=== PATIENT | male | born 1975 | race African-American/Black ===

== ENCOUNTER 2017-02-27 19:10 | Emergency (ER) | payer BC ==
[~2017-02-27] VITALS: Ht 182.9 cm; Wt 186.0 kg
[~2017-02-27 19:10] MED LIST: HYDR-2758 PO; OXYC-327 PO; OXYC-328 PO; SULF-143 PO
[2017-02-27 21:02] LABS: BASO % 0 % (0-3); EOS % 2 % (0-3); HEMATOCRIT 39.6 % (39.0-53.0); HEMOGLOBIN 12.6 g/dL (13.0-17.5); LYMPH # 2.1 x10^3/uL (1.0-4.8); LYMPH % 28 % (24-48); MEAN CORPUSCULAR HEMOGLOBIN 28 pg (25-35); MEAN CORPUSCULAR HGB CONC 32 g/dL (31-37); MEAN CORPUSCULAR VOLUME 87 fL (79-100); MONO % 5 % (0-9); NEUT % 65 % (31-73); PLATELET COUNT 334 x10^3/uL (140-400); RED BLOOD COUNT 4.53 x10^6/uL (4.30-5.70); RED CELL DISTRIBUTION WIDTH 14.3 % (11.5-14.5); WHITE BLOOD COUNT 7.5 x10^3/uL (4.0-11.0)
[2017-02-27 21:13] LABS: CALCIUM 8.7 mg/dL (8.5-10.1); GFR 100.1; POTASSIUM 3.8 mmol/L (3.5-5.1)
[2017-02-27 21:18] LABS: ALBUMIN 3.8 g/dL (3.4-5.0); ALBUMIN/GLOBULIN RATIO 0.9 (1.0-1.7); TOTAL BILIRUBIN 0.3 mg/dL (0.2-1.0)
[2017-02-27] MEDS ORDERED: IOHEXOL 300 MG/ML 100ML VIAL. IV ONE (21:30)
[2017-02-27] MEDS ORDERED: CONTRAST GIVEN MC PRN (21:30)
--- NOTE | 2017-02-27 21:40 | PHYS DOC ---
Past Medical History Past Medical History: Alcoholism, GERD Past Surgical History: No Surgical History Alcohol Use: Heavy Additional Information: 2 -24 OZ BEERS DAILY Drug Use: None Adult General Chief Complaint Chief Complaint: CHEST PAIN HPI HPI Patient is a 42 year old M who presents with chest pain. Patient states that he 's having emotional distress secondary his grandfather's sickness. Patient developed some left-sided chest pain that radiated down his left arm. Patient states in the emergency room the chest pain is resolved however he still has some numbness and tingling to the left arm. Patient is obese however has no previous cardiac history including stents and bypass surgery. Patient does not have hypertension, diabetes, smoking history, hyperlipidemia. Patient does declines any previous history of DVT or PE. Patient has no other complaints. Patient denies any fevers. Review of Systems Review of Systems GEN: Denies fevers, chills, sweats HEENT: Denies blurred vision, sore throat CV: Chest pain RESP: Denies shortness of air, cough GI: Denies n/v/d NEURO: Denies confusion, dizziness MSK: Denies weakness, joint pain/swelling All other systems were reviewed and found to be within normal limits, except as documented in this note. Current Medications Current Medications Current Medications Medications (Trade) Dose Ordered Sig/Dmitri Start Time Stop Time Status Last Admin Dose Admin Info (Do NOT chart on this entry -- for MONITORING) 1 each PRN DAILY PRN 02/27/17 21:30 03/01/17 21:29 Iohexol (Omnipaque 300 Mg/ml) 75 ml 1X ONCE 02/27/17 21:30 02/27/17 21:31 DC 02/27/17 21:25 75 ML Allergies Allergies Allergies Coded Allergies Type Severity Reaction Last Updated Verified No Known Drug Allergies 07/27/13 No Physical Exam Physical Exam GEN.: No apparent distress. Alert and oriented. HEENT: Head is normocephalic, atraumatic NECK: Supple. LUNGS: CTAB. HEART: RRR (on examined emergency room despite triage vital signs), S1, S2 present. Peripheral pulses intact ABDOMEN: Soft, nontender. Positive bowel sounds. EXTREMITIES: Without any cyanosis. NEUROLOGIC: Normal speech, normal tone PSYCHIATRIC: Normal affect, normal mood. SKIN: No ulcerations Current Patient Data Vital Signs Vital Signs Date Time Temp Pulse Resp B/P (MAP) Pulse Ox O2 Delivery O2 Flow Rate FiO2 02/27/17 23:09 87 16 165/79 (107) 95 Room Air 02/27/17 19:28 98.0 98.0 Lab Values Laboratory Tests Test 02/27/17 19:25 White Blood Count 7.5 x10^3/uL (4.0-11.0) Red Blood Count 4.53 x10^6/uL (4.30-5.70) Hemoglobin 12.6 g/dL (13.0-17.5) L Hematocrit 39.6 % (39.0-53.0) Mean Corpuscular Volume 87 fL (79-100) Mean Corpuscular Hemoglobin 28 pg (25-35) Mean Corpuscular Hemoglobin Concent 32 g/dL (31-37) Red Cell Distribution Width 14.3 % (11.5-14.5) Platelet Count 334 x10^3/uL (140-400) Neutrophils (%) (Auto) 65 % (31-73) Lymphocytes (%) (Auto) 28 % (24-48) Monocytes (%) (Auto) 5 % (0-9) Eosinophils (%) (Auto) 2 % (0-3) Basophils (%) (Auto) 0 % (0-3) Neutrophils # (Auto) 4.9 x10^3uL (1.8-7.7) Lymphocytes # (Auto) 2.1 x10^3/uL (1.0-4.8) Monocytes # (Auto) 0.4 x10^3/uL (0.0-1.1) Eosinophils # (Auto) 0.2 x10^3/uL (0.0-0.7) Basophils # (Auto) 0.0 x10^3/uL (0.0-0.2) Sodium Level 141 mmol/L (136-145) Potassium Level 3.8 mmol/L (3.5-5.1) Chloride Level 103 mmol/L (98-107) Carbon Dioxide Level 24 mmol/L (21-32) Anion Gap 14 (6-14) Blood Urea Nitrogen 9 mg/dL (8-26) Creatinine 1.0 mg/dL (0.7-1.3) Estimated GFR (Cockcroft-Gault) 100.1 BUN/Creatinine Ratio 9 (6-20) Glucose Level 121 mg/dL (70-99) H Calcium Level 8.7 mg/dL (8.5-10.1) Total Bilirubin 0.3 mg/dL (0.2-1.0) Aspartate Amino Transferase (AST) 28 U/L (15-37) Alanine Aminotransferase (ALT) 34 U/L (16-63) Alkaline Phosphatase 71 U/L (46-116) Troponin I Quantitative < 0.017 ng/mL (0.000-0.055) Total Protein 8.0 g/dL (6.4-8.2) Albumin 3.8 g/dL (3.4-5.0) Albumin/Globulin Ratio 0.9 (1.0-1.7) L Laboratory Tests 02/27/17 19:25 Laboratory Tests 02/27/17 19:25 EKG EKG 1918: EKG shows sinus tach rate of 101 no STEMI[] Radiology/Procedures Radiology/Procedures Chest x-ray NAD CTA of the chest NAD[] Course & Med Decision Making Course & Med Decision Making Pertinent Labs and Imaging studies reviewed. (See chart for details) ED course: Patient was seen and examined emergency room cart workup was ordered along with a CTA of the chest due to the tachycardia associated chest pain On reexamination the patient was asymptomatic with no chest pain resting comfortably in the bed He was updated on CT findings which was unremarkable and he was ready go home. Patient's heart score was 1 secondary to his obesity. Recommended patient can follow up as an outpatient for cardiac workup with his PCP. MDM: After reviewing the chart, CC/HPI/PMH, physical exam, [lab results], [ radiological results], I do not believe the patient having acute AL (HEART score =1), PE, thoracic aortic dissection. I believe the patient has a low cardiac risk profile and can be discharged home for outpatient cardiac workup. On reexamination patient is chest pain-free and comfortable going home. Patient stable for discharge. Additional verbal discharge instructions were provided to the patient and that if symptoms get worse or any new symptoms arise that are worrisome to the patient he is to return to the emergency room immediately [] Dragon Disclaimer Dragon Disclaimer This electronic medical record was generated, in whole or in part, using a voice recognition dictation system. Departure Departure Impression: Primary Impression: Chest pain Disposition: HOME, SELF-CARE Condition: IMPROVED Referrals: NO PCP (PCP) Patient Instructions: Chest Pain (Nonspecific) Additional Instructions: Please follow-up with your family physician in the next one to 2 days and return if symptoms increase BRANDY RODRÍGUEZ DO Feb 27, 2017 21:40
[2017-02-27 23:09] VITALS: BP 165/79
--- NOTE | 2017-02-27 23:28 | RAD ---
CTA Chest with contrast: Clinical History: CHEST QUEEN WITH BREATHING FOLLOWING STRESS. INJ 75ML OMNI 300 PT WEIGHT IS 410 POUNDS NO PREV . Axial helical images of the chest were obtained after the administration of 75 cc of IV Omni 300 and timed appropriately for a pulmonary arterial study. Conventional axial reconstruction was performed in addition to coronal, sagittal and bilateral oblique MIP (maximum intensity projection). This study was ordered to detect possible pulmonary embolism. There are no filling defects to suggest pulmonary embolism. There is motion artifact. The lungs and pleural margins are clear. There is no mediastinal or hilar lymphadenopathy. The thoracic aorta appears normal. Impression: 1. No evidence of pulmonary embolism. 2. No significant findings. PQRS Compliance Statement: One or more of the following individualized dose reduction techniques were utilized for this examination: 1. Automated exposure control 2. Adjustment of the mA and/or kV according to patient size 3. Use of iterative reconstruction technique Electronically signed by: Arthur Camp III, MD (02/27/2017 11:25 PM) [facility]
--- NOTE | 2017-02-28 08:46 | RAD ---
AP chest 02/27/2017 Clinical indication: Mid chest pain. Comparison: None. Findings: Cardiac and mediastinal silhouettes are unremarkable. No pleural effusion, pneumothorax or focal consolidation. Impression: No acute cardiopulmonary abnormality.
--- NOTE | 2017-02-28 11:32 | EKG ---
[facility] [address] [place] [address] Test Date: 2017-02-27 Test Time: 19:17:53 Pat Name: HUMBERTO WANG Department: Room: Gender: M [employer] Controls Engineer: : 1975 Requested By: BRANDY RODRÍGUEZ Order Number: [id number] Reading MD: Measurements Intervals [place] Rate: 101 P: 25 MA: 156 QRS: 9 QRSD: 82 T: 6 QT: 334 QTc: 434 Interpretive Statements SINUS TACHYCARDIA QRS(T) CONTOUR ABNORMALITY CONSIDER ANTEROSEPTAL MYOCARDIAL DAMAGE POSSIBLY ABNORMAL ECG RI6.01 No previous ECG available for comparison
== END 2017-02-27 23:55 | disposition home or self-care (01) ==
LOC: ER 19:10
DX: R07.89 Other chest pain (principal); R20.0 Anesthesia of skin; R20.2 Paresthesia of skin; F10.20 Alcohol dependence, uncomplicated; K21.9 Gastro-esophageal reflux disease without esophagitis; E66.9 Obesity, unspecified; Z68.43 Body mass index [BMI] 50.0-59.9, adult
CPT/HCPCS: 36415; 71010; 71275; 80053; 84484; 85025; 93005; 99285; Q9967

== ENCOUNTER 2018-06-04 20:02 | Observation (INO) | payer BC, OTHER ==
[~2018-06-04] VITALS: Ht 185.4 cm; Wt 169.2 kg
[~2018-06-04 20:02] MED LIST changes: -HYDR-2758 PO; +HYDR-2761 PO; -OXYC-327 PO; -OXYC-328 PO; +OXYC1TAB19 PO; +OXYC1TAB22 PO
[2018-06-04 20:29] LABS: BASO % 0 % (0-3); EOS # 0.1 x10^3/uL (0.0-0.7); EOS % 2 % (0-3); HEMATOCRIT 38.3 % (39.0-53.0); HEMOGLOBIN 12.6 g/dL (13.0-17.5); LYMPH # 1.7 x10^3/uL (1.0-4.8); LYMPH % 30 % (24-48); MEAN CORPUSCULAR HEMOGLOBIN 29 pg (25-35); MEAN CORPUSCULAR HGB CONC 33 g/dL (31-37); MEAN CORPUSCULAR VOLUME 88 fL (79-100); MONO # 0.6 x10^3/uL (0.0-1.1); MONO % 11 % (0-9); NEUT # 3.2 x10^3uL (1.8-7.7); NEUT % 57 % (31-73); PLATELET COUNT 293 x10^3/uL (140-400); RED BLOOD COUNT 4.38 x10^6/uL (4.30-5.70); RED CELL DISTRIBUTION WIDTH 14.2 % (11.5-14.5); WHITE BLOOD COUNT 5.6 x10^3/uL (4.0-11.0)
[2018-06-04 20:38] LABS: PROTHROMBIN TIME PATIENT 13.1 SEC (11.7-14.0)
[2018-06-04 20:53] LABS: CALCIUM 8.7 mg/dL (8.5-10.1); CREATININE 1.2 mg/dL (0.7-1.3); GFR 80.7; POTASSIUM 3.7 mmol/L (3.5-5.1)
[2018-06-04 21:00] LABS: ALBUMIN 3.6 g/dL (3.4-5.0); ALBUMIN/GLOBULIN RATIO 0.8 (1.0-1.7); TOTAL BILIRUBIN 0.2 mg/dL (0.2-1.0)
--- NOTE | 2018-06-04 21:48 | PHYS DOC ---
Past Medical History Past Medical History: Alcoholism, GERD Past Surgical History: No Surgical History Alcohol Use: Heavy Drug Use: None Adult General Chief Complaint Chief Complaint: CHEST PAIN HPI HPI Patient is an obese 43 yo male who presents with complaint of chest pain. He reports the pain began ONE HOUR AFTER EATING PIZZA, at 1800 WHILE HE WAS lifting heavy boxes at work. 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 He also admits he had SOB, dizziness, and felt "clammy" at the time of the incident. EMS gave patient nitro which helped alleviate sx. He reports he had a similar incident one other time when he was visiting his terminally ill grandfather. He reports that he now feels fine. He denies drug use, etoh use, or smoking. He reports he does not regularly see a doctor, currently does not have PCP, but has been told he has "borderline high blood pressure". He does report he has had a "blood clot under his nuts" before but does not remember if he was ever on anticoagulation or what caused the clot. He denies any recent prolonged immobilization, travel, or surgery. He denies recent cough or respiratory symptoms. He denies any additional symptoms. MEDICS GAVE ASPIRIN Review of Systems Review of Systems Constitutional: Denies fever or chills [] Eyes: Denies change in visual acuity, redness, or eye pain [] HENT: Denies nasal congestion or sore throat [] Respiratory: Denies cough or shortness of breath [] Cardiovascular: Admits chest pain. Denies palpitations. GI: Denies abdominal pain, nausea, vomiting, bloody stools or diarrhea [] : Denies dysuria or hematuria [] Musculoskeletal: Denies back pain or joint pain [] Integument: Denies rash or skin lesions [] Neurologic: Denies headache, focal weakness or sensory changes [] All other systems were reviewed and found to be within normal limits, except as documented in this note. Allergies Allergies Allergies Coded Allergies Type Severity Reaction Last Updated Verified No Known Drug Allergies 07/27/13 No Physical Exam Physical Exam Constitutional: Well developed, obese, no acute distress, non-toxic appearance. [] HENT: Normocephalic, atraumatic, oropharynx moist, no oral exudates, nose normal. [] Eyes: PERRLA, EOMI Neck: Normal range of motion, no tenderness, supple, no stridor. [] Cardiovascular:Heart rate regular rhythm, no murmur [] Lungs & Thorax: Bilateral breath sounds clear to auscultation [] Abdomen: Bowel sounds normal, soft, no tenderness, no masses, no pulsatile masses. [] Skin: Warm, dry, no erythema, no rash. Extremities: No tenderness, no cyanosis, no clubbing, ROM intact, no edema. [] Neurologic: Alert and oriented X 3, normal motor function, normal sensory function, no focal deficits noted. [] Psychologic: Affect normal, judgement normal, mood normal. [] Current Patient Data Vital Signs Vital Signs Date Time Temp Pulse Resp B/P (MAP) Pulse Ox O2 Delivery O2 Flow Rate FiO2 06/04/18 22:15 100 18 118/54 (75) 96 Room Air 06/04/18 20:15 98.6 98.6 Lab Values Laboratory Tests Test 06/04/18 20:18 White Blood Count 5.6 x10^3/uL (4.0-11.0) Red Blood Count 4.38 x10^6/uL (4.30-5.70) Hemoglobin 12.6 g/dL (13.0-17.5) L Hematocrit 38.3 % (39.0-53.0) L Mean Corpuscular Volume 88 fL (79-100) Mean Corpuscular Hemoglobin 29 pg (25-35) Mean Corpuscular Hemoglobin Concent 33 g/dL (31-37) Red Cell Distribution Width 14.2 % (11.5-14.5) Platelet Count 293 x10^3/uL (140-400) Neutrophils (%) (Auto) 57 % (31-73) Lymphocytes (%) (Auto) 30 % (24-48) Monocytes (%) (Auto) 11 % (0-9) H Eosinophils (%) (Auto) 2 % (0-3) Basophils (%) (Auto) 0 % (0-3) Neutrophils # (Auto) 3.2 x10^3uL (1.8-7.7) Lymphocytes # (Auto) 1.7 x10^3/uL (1.0-4.8) Monocytes # (Auto) 0.6 x10^3/uL (0.0-1.1) Eosinophils # (Auto) 0.1 x10^3/uL (0.0-0.7) Basophils # (Auto) 0.0 x10^3/uL (0.0-0.2) Prothrombin Time 13.1 SEC (11.7-14.0) Prothrombin Time INR 1.0 (0.8-1.1) D-Dimer (Ailin) < 0.27 ug/mlFEU Sodium Level 139 mmol/L (136-145) Potassium Level 3.7 mmol/L (3.5-5.1) Chloride Level 105 mmol/L (98-107) Carbon Dioxide Level 24 mmol/L (21-32) Anion Gap 10 (6-14) Blood Urea Nitrogen 11 mg/dL (8-26) Creatinine 1.2 mg/dL (0.7-1.3) Estimated GFR (Cockcroft-Gault) 80.7 BUN/Creatinine Ratio 9 (6-20) Glucose Level 98 mg/dL (70-99) Calcium Level 8.7 mg/dL (8.5-10.1) Total Bilirubin 0.2 mg/dL (0.2-1.0) Aspartate Amino Transferase (AST) 24 U/L (15-37) Alanine Aminotransferase (ALT) 34 U/L (16-63) Alkaline Phosphatase 70 U/L (46-116) Troponin I Quantitative < 0.017 ng/mL (0.000-0.055) IT-Zpd-B-Type Natriuretic Peptide 9 pg/mL (0-124) Total Protein 8.0 g/dL (6.4-8.2) Albumin 3.6 g/dL (3.4-5.0) Albumin/Globulin Ratio 0.8 (1.0-1.7) L Lipase 118 U/L (73-393) Laboratory Tests 06/04/18 20:18 Laboratory Tests 06/04/18 20:18 EKG EKG [@2016; HR 92bpm. low voltage in lead III. No ST elevation or depression. ] Radiology/Procedures Radiology/Procedures [CXR ED prelim read: No acute radiographic abnormality. Borderline cardiomegaly. Both gutters clear. No consolidation appreciated] Course & Med Decision Making Course & Med Decision Making Patient is a 43 yo obese male who presents with complaint of chest pressure, SOB , and dizziness that began while at work at 1800. He reports EMS gave him nitro en route which alleviated the pain. He does not see a physician regularly, NO PRIMARY DOCTOR DDIMER ENG HEART SCORE H 2 E 0 A 0 R 2 T 0, ADMIT FOR STRESS TEST, THERE WAS EXERTIONAL COMPONENT TO THIS PAIN, CP FREE NOW. DOES NOT SOUND LIKE DISSECTION, PT IS CP FREE NOW IT WAS NONRADIATING Dragon Disclaimer Dragon Disclaimer This electronic medical record was generated, in whole or in part, using a voice recognition dictation system. Departure Departure Impression: Primary Impression: Chest pain Disposition: ADMITTED INPATIENT Admitting Physician: Balaji Bishop Condition: STABLE Referrals: NO PCP (PCP) DESTINI DEVI MD Jun 04, 2018 21:48
[2018-06-04] MEDS ORDERED: MORPHINE SULFATE 4 MG/ML VIAL. IV PRN (22:30)
[2018-06-04] MEDS ORDERED: NITROGLYCERIN SUBLINGUAL 0.4 MG BOTTLE OF 25. SL PRN (22:30)
--- NOTE | 2018-06-04 23:37 | RAD ---
PORTABLE CHEST 1V History: MIDSTERNAL CHEST PAIN X1 DAY Comparison: February 27, 2017 Findings: AP portable view of the chest is submitted. Cardiac silhouette is able, borderline in size. There is no pneumothorax, pleural fluid, infiltrate. Impression: 1. There is no significant infiltrate or pleural fluid. There is stable borderline size of the cardiac silhouette. Electronically signed by: Rafita Harman MD (06/04/2018 11:34 PM) [facility]
[2018-06-04 23:40] VITALS: BP 148/80
[2018-06-05 03:50] VITALS: BP 94/47
[2018-06-05 06:57] LABS: CHOLESTEROL/HDL RATIO 3.3
[2018-06-05 07:00] VITALS: BP 157/91
--- NOTE | 2018-06-05 10:08 | EKG ---
[facility] [address] [place] [address] Test Date: 2018-06-04 Test Time: 20:16:26 Pat Name: HUMBERTO WANG Department: Room: 211 1 Gender: M Therapist Physical: : 1975 Requested By: DESTINI DEVI Order Number: [id number] Reading MD: Beny Robb MD Measurements Intervals [place] Rate: 92 P: 36 OR: 166 QRS: 26 QRSD: 82 T: 29 QT: 354 QTc: 443 Interpretive Statements SINUS RHYTHM Electronically Signed On 06-07-2018 10:09:26 CDT by Beny Robb MD
--- NOTE | 2018-06-05 10:52 | PDOC ---
PROGRESS NOTES Vitals Vitals Vital Signs Date Time Temp Pulse Resp B/P (MAP) Pulse Ox O2 Delivery O2 Flow Rate FiO2 06/05/18 08:00 Room Air 06/05/18 07:00 98.7 78 20 157/91 (113) 98 98.7 Labs LABS Laboratory Tests Test 06/04/18 20:18 06/05/18 02:30 06/05/18 04:00 White Blood Count 5.6 x10^3/uL (4.0-11.0) Red Blood Count 4.38 x10^6/uL (4.30-5.70) Hemoglobin 12.6 g/dL (13.0-17.5) Hematocrit 38.3 % (39.0-53.0) Mean Corpuscular Volume 88 fL (79-100) Mean Corpuscular Hemoglobin 29 pg (25-35) Mean Corpuscular Hemoglobin Concent 33 g/dL (31-37) Red Cell Distribution Width 14.2 % (11.5-14.5) Platelet Count 293 x10^3/uL (140-400) Neutrophils (%) (Auto) 57 % (31-73) Lymphocytes (%) (Auto) 30 % (24-48) Monocytes (%) (Auto) 11 % (0-9) Eosinophils (%) (Auto) 2 % (0-3) Basophils (%) (Auto) 0 % (0-3) Neutrophils # (Auto) 3.2 x10^3uL (1.8-7.7) Lymphocytes # (Auto) 1.7 x10^3/uL (1.0-4.8) Monocytes # (Auto) 0.6 x10^3/uL (0.0-1.1) Eosinophils # (Auto) 0.1 x10^3/uL (0.0-0.7) Basophils # (Auto) 0.0 x10^3/uL (0.0-0.2) Prothrombin Time 13.1 SEC (11.7-14.0) Prothromb Time International Ratio 1.0 (0.8-1.1) D-Dimer (Ailin) < 0.27 ug/mlFEU Sodium Level 139 mmol/L (136-145) Potassium Level 3.7 mmol/L (3.5-5.1) Chloride Level 105 mmol/L (98-107) Carbon Dioxide Level 24 mmol/L (21-32) Anion Gap 10 (6-14) Blood Urea Nitrogen 11 mg/dL (8-26) Creatinine 1.2 mg/dL (0.7-1.3) Estimated GFR (Cockcroft-Gault) 80.7 BUN/Creatinine Ratio 9 (6-20) Glucose Level 98 mg/dL (70-99) Calcium Level 8.7 mg/dL (8.5-10.1) Total Bilirubin 0.2 mg/dL (0.2-1.0) Aspartate Amino Transf (AST/SGOT) 24 U/L (15-37) Alanine Aminotransferase (ALT/SGPT) 34 U/L (16-63) Alkaline Phosphatase 70 U/L (46-116) Troponin I Quantitative < 0.017 ng/mL (0.000-0.055) < 0.017 ng/mL (0.000-0.055) < 0.017 ng/mL (0.000-0.055) LR-Uuf-S-Type Natriuretic Peptide 9 pg/mL (0-124) Total Protein 8.0 g/dL (6.4-8.2) Albumin 3.6 g/dL (3.4-5.0) Albumin/Globulin Ratio 0.8 (1.0-1.7) Lipase 118 U/L (73-393) Triglycerides Level 61 mg/dL (0-150) Cholesterol Level 146 mg/dL (0-200) LDL Cholesterol, Calculated 90 mg/dL (0-100) VLDL Cholesterol, Calculated 12 mg/dL (0-40) Non-HDL Cholesterol Calculated 102 mg/dL (0-129) HDL Cholesterol 44 mg/dL (40-60) Cholesterol/HDL Ratio 3.3 Comment Review of Relevant I have reviewed the following items minh (where applicable) has been applied. Labs Laboratory Tests Test 06/04/18 20:18 06/05/18 02:30 06/05/18 04:00 White Blood Count 5.6 x10^3/uL (4.0-11.0) Red Blood Count 4.38 x10^6/uL (4.30-5.70) Hemoglobin 12.6 g/dL (13.0-17.5) Hematocrit 38.3 % (39.0-53.0) Mean Corpuscular Volume 88 fL (79-100) Mean Corpuscular Hemoglobin 29 pg (25-35) Mean Corpuscular Hemoglobin Concent 33 g/dL (31-37) Red Cell Distribution Width 14.2 % (11.5-14.5) Platelet Count 293 x10^3/uL (140-400) Neutrophils (%) (Auto) 57 % (31-73) Lymphocytes (%) (Auto) 30 % (24-48) Monocytes (%) (Auto) 11 % (0-9) Eosinophils (%) (Auto) 2 % (0-3) Basophils (%) (Auto) 0 % (0-3) Neutrophils # (Auto) 3.2 x10^3uL (1.8-7.7) Lymphocytes # (Auto) 1.7 x10^3/uL (1.0-4.8) Monocytes # (Auto) 0.6 x10^3/uL (0.0-1.1) Eosinophils # (Auto) 0.1 x10^3/uL (0.0-0.7) Basophils # (Auto) 0.0 x10^3/uL (0.0-0.2) Prothrombin Time 13.1 SEC (11.7-14.0) Prothromb Time International Ratio 1.0 (0.8-1.1) D-Dimer (Ailin) < 0.27 ug/mlFEU Sodium Level 139 mmol/L (136-145) Potassium Level 3.7 mmol/L (3.5-5.1) Chloride Level 105 mmol/L (98-107) Carbon Dioxide Level 24 mmol/L (21-32) Anion Gap 10 (6-14) Blood Urea Nitrogen 11 mg/dL (8-26) Creatinine 1.2 mg/dL (0.7-1.3) Estimated GFR (Cockcroft-Gault) 80.7 BUN/Creatinine Ratio 9 (6-20) Glucose Level 98 mg/dL (70-99) Calcium Level 8.7 mg/dL (8.5-10.1) Total Bilirubin 0.2 mg/dL (0.2-1.0) Aspartate Amino Transf (AST/SGOT) 24 U/L (15-37) Alanine Aminotransferase (ALT/SGPT) 34 U/L (16-63) Alkaline Phosphatase 70 U/L (46-116) Troponin I Quantitative < 0.017 ng/mL (0.000-0.055) < 0.017 ng/mL (0.000-0.055) < 0.017 ng/mL (0.000-0.055) KN-Teg-O-Type Natriuretic Peptide 9 pg/mL (0-124) Total Protein 8.0 g/dL (6.4-8.2) Albumin 3.6 g/dL (3.4-5.0) Albumin/Globulin Ratio 0.8 (1.0-1.7) Lipase 118 U/L (73-393) Triglycerides Level 61 mg/dL (0-150) Cholesterol Level 146 mg/dL (0-200) LDL Cholesterol, Calculated 90 mg/dL (0-100) VLDL Cholesterol, Calculated 12 mg/dL (0-40) Non-HDL Cholesterol Calculated 102 mg/dL (0-129) HDL Cholesterol 44 mg/dL (40-60) Cholesterol/HDL Ratio 3.3 Laboratory Tests Test 06/04/18 20:18 06/05/18 02:30 06/05/18 04:00 White Blood Count 5.6 x10^3/uL (4.0-11.0) Red Blood Count 4.38 x10^6/uL (4.30-5.70) Hemoglobin 12.6 g/dL (13.0-17.5) Hematocrit 38.3 % (39.0-53.0) Mean Corpuscular Volume 88 fL (79-100) Mean Corpuscular Hemoglobin 29 pg (25-35) Mean Corpuscular Hemoglobin Concent 33 g/dL (31-37) Red Cell Distribution Width 14.2 % (11.5-14.5) Platelet Count 293 x10^3/uL (140-400) Neutrophils (%) (Auto) 57 % (31-73) Lymphocytes (%) (Auto) 30 % (24-48) Monocytes (%) (Auto) 11 % (0-9) Eosinophils (%) (Auto) 2 % (0-3) Basophils (%) (Auto) 0 % (0-3) Neutrophils # (Auto) 3.2 x10^3uL (1.8-7.7) Lymphocytes # (Auto) 1.7 x10^3/uL (1.0-4.8) Monocytes # (Auto) 0.6 x10^3/uL (0.0-1.1) Eosinophils # (Auto) 0.1 x10^3/uL (0.0-0.7) Basophils # (Auto) 0.0 x10^3/uL (0.0-0.2) Prothrombin Time 13.1 SEC (11.7-14.0) Prothromb Time International Ratio 1.0 (0.8-1.1) D-Dimer (Ailin) < 0.27 ug/mlFEU Sodium Level 139 mmol/L (136-145) Potassium Level 3.7 mmol/L (3.5-5.1) Chloride Level 105 mmol/L (98-107) Carbon Dioxide Level 24 mmol/L (21-32) Anion Gap 10 (6-14) Blood Urea Nitrogen 11 mg/dL (8-26) Creatinine 1.2 mg/dL (0.7-1.3) Estimated GFR (Cockcroft-Gault) 80.7 BUN/Creatinine Ratio 9 (6-20) Glucose Level 98 mg/dL (70-99) Calcium Level 8.7 mg/dL (8.5-10.1) Total Bilirubin 0.2 mg/dL (0.2-1.0) Aspartate Amino Transf (AST/SGOT) 24 U/L (15-37) Alanine Aminotransferase (ALT/SGPT) 34 U/L (16-63) Alkaline Phosphatase 70 U/L (46-116) Troponin I Quantitative < 0.017 ng/mL (0.000-0.055) < 0.017 ng/mL (0.000-0.055) < 0.017 ng/mL (0.000-0.055) KJ-Wfc-L-Type Natriuretic Peptide 9 pg/mL (0-124) Total Protein 8.0 g/dL (6.4-8.2) Albumin 3.6 g/dL (3.4-5.0) Albumin/Globulin Ratio 0.8 (1.0-1.7) Lipase 118 U/L (73-393) Triglycerides Level 61 mg/dL (0-150) Cholesterol Level 146 mg/dL (0-200) LDL Cholesterol, Calculated 90 mg/dL (0-100) VLDL Cholesterol, Calculated 12 mg/dL (0-40) Non-HDL Cholesterol Calculated 102 mg/dL (0-129) HDL Cholesterol 44 mg/dL (40-60) Cholesterol/HDL Ratio 3.3 Medications Current Medications Morphine Sulfate (Morphine Sulfate) 4 mg PRN Q2HR PRN IV PAIN; Start 06/04/18 at 22:30; Stop 06/05/18 at 22:29 Nitroglycerin (Nitrostat) 0.4 mg PRN Q5MIN PRN SL CHEST PAIN; Start 06/04/18 at 22:30; Stop 06/05/18 at 22:29 Active Scripts Active Reported Percocet 7.5-325 Mg Tablet (Oxycodone/Acetaminophen) 1 Each Tablet 1 Tab PO Q4- 6HRS PRN Vitals/I & O Vital Sign - Last 24 Hours 06/04/18 06/04/18 06/04/18 06/04/18 20:15 20:45 21:45 22:15 Temp 98.6 98.6 Pulse 94 94 96 100 Resp 16 20 14 18 B/P (MAP) 129/58 (81) 136/59 (84) 118/60 (79) 118/54 (75) Pulse Ox 95 96 96 96 O2 Delivery Room Air Room Air Room Air Room Air 06/04/18 06/04/18 06/05/18 06/05/18 23:40 23:45 03:50 07:00 Temp 98.5 98.1 98.7 98.5 98.1 98.7 Pulse 93 81 78 Resp 21 19 20 B/P (MAP) 148/80 (102) 94/47 (63) 157/91 (113) Pulse Ox 96 95 98 O2 Delivery Room Air Room Air Room Air Room Air 06/05/18 08:00 O2 Delivery Room Air Intake and Output 06/04/18 06/04/18 06/05/18 14:59 22:59 06:59 Intake Total 400 ml Balance 400 ml ILANA JADE MD Jun 05, 2018 10:52
--- NOTE | 2018-06-05 10:53 | PDOC1 ---
History and Physical Date of Admission Date of Admission DATE: 06/05/18 TIME: 10:52 Identification/Chief Complaint Chief Complaint presents with complaint of chest pain. He reports the pain began ONE HOUR AFTER EATING PIZZA, at 1800 WHILE HE WAS lifting heavy boxes at work. He described the pain as "chest pressure" and "like a vice director of cardiology service line" but denied radiation. He also admits he had SOB, dizziness, and felt "clammy" at the time of the incident. EMS gave patient nitro which helped alleviate sx. STATES HE DRINKS 2 LARGE BEERS A DAY DOES NOT HAVE A PCP Past Medical History Past Medical History Past Medical History Past Medical History Past Medical History: Alcoholism, GERD Past Surgical History: No Surgical History Alcohol Use: Heavy Drug Use: None Past Medical History Cardiovascular: No pertinent hx Pulmonary: No pertinent hx GI: GERD Renal/: No pertinent hx Past Surgical History Past Surgical History: Pacemaker, No pertinent history Family History Family History: Hypertension Social History ALCOHOL: heavy Cardiovascular: No pertinent hx Pulmonary: No pertinent hx GI: GERD Rheumatologic: No pertinent hx Infectious disease: No pertinent hx Renal/: No pertinent hx Past Surgical History Past Surgical History: Pacemaker Family History Family History: Alcohol Abuse, Hypertension Social History Smoke: <1 pack per day ALCOHOL: heavy Drugs: None Current Medications Current Medications Current Medications Morphine Sulfate (Morphine Sulfate) 4 mg PRN Q2HR PRN IV PAIN; Start 06/04/18 at 22:30; Stop 06/05/18 at 22:29 Nitroglycerin (Nitrostat) 0.4 mg PRN Q5MIN PRN SL CHEST PAIN; Start 06/04/18 at 22:30; Stop 06/05/18 at 22:29 Active Scripts Active Reported Percocet 7.5-325 Mg Tablet (Oxycodone/Acetaminophen) 1 Each Tablet 1 Tab PO Q4- 6HRS PRN Allergies Allergies: Coded Allergies: No Known Drug Allergies (Unverified , 07/27/13) ROS Review of System 14 PT ROS OTHERWISE NEG General: No: Chills, Night Sweats, Fatigue, Malaise, Appetite, Other PSYCHOLOGICAL ROS: No: Anxiety, Behavioral Disorder, Concentration difficultie , Decreased libido, Depression, Disorientation, Hallucinations, Hostility, Irritablity, Memory difficulties, Mood Swings, Obsessive thoughts, Physical abuse, Sexual abuse, Sleep disturbances, Suicidal ideation, Other Eyes: No Blurry vision, No Decreased vision, No Double vision, No Dry eyes, No Excessive tearing, No Eye Pain, No Itchy Eyes, No Loss of vision, No Photophobia , No Scotomata, No Uses contacts, No Uses glasses, No Other HEENT: No: Heacaches, Visual Changes, Hearing change, Nasal congestion, Nasal discharge, Oral lesions, Sinus pain, Sore Throat, Epistaxis, Sneezing, Snoring, Tinnitus, Vertigo, Vocal changes, Other ALLERGY AND IMMUNOLOGY: No: Hives, Insect Bite Sensitivity, Itchy/Watery Eyes, Nasal Congestion, Post Nasal Drip, Seasonal Allergies, Other Hematological and Lymphatic: No: Bleeding Problems, Blood Clots, Blood Transfusions, Brusing, Night Sweats, Pallor, Swollen Lymph Nodes, Other ENDOCRINE: No: Breast Changes, Galactorrhea, Hair Pattern Changes, Hot Flashes , Malaise/lethargy, Mood Swings, Palpitations, Polydipsia/polyuria, Skin Changes , Temperature Intolerance, Unexpected Weight Changes, Other Breast: No New/Changing Breast Lumps, No Nipple changes, No Nipple discharge, No Other Cardiovascular: yes Chest Pain, yes Palpitations Gastrointestinal: No Nausea, No Vomiting, No Abdominal Pain, No Diarrhea, No Constipation, No Melena, No Hematochezia, No Other Genitourinary: No Dysuria, No Frequency, No Incontinence, No Hematuria, No Retention, No Discharge, No Urgency, No Pain, No Flank Pain, No Other, No , No , No , No , No , No , No Musculoskeletal: No Gait Disturbance, No Joint Pain, No Joint Stiffness, No Joint Swelling, No Muscle Pain, No Muscular Weakness, No Pain In:, No Swelling In:, No Other Neurological: No Behavorial Changes, No Bowel/Bladder ControlChng, No Confusion , No Dizziness, No Gait Disturbance, No Headaches, No Impaired Coord/balance, No Memory Loss, No Numbness/Tingling, No Seizures, No Speech Problems, No Tremors, No Visual Changes, No Weakness, No Other Skin: No Dry Skin, No Eczema, No Hair Changes, No Lumps, No Mole Changes, No Mottling, No Nail Changes, No Pruritus, No Rash, No Skin Lesion Changes, No Other, No Acne Physical Exam Physical Exam Physical Exam Physical Exam Constitutional: Well developed, VERY obese, no acute distress, non-toxic appearance. [] HENT: Normocephalic, atraumatic, oropharynx moist, no oral exudates, nose normal. [] Eyes: PERRLA, EOMI Neck: Normal range of motion, no tenderness, supple, no stridor. [] Cardiovascular:Heart rate regular rhythm, no murmur [] Lungs & Thorax: Bilateral breath sounds clear to auscultation [] Abdomen: Bowel sounds normal, soft, no tenderness, no masses, no pulsatile masses. [] Skin: Warm, dry, no erythema, no rash. Extremities: No tenderness, no cyanosis, no clubbing, ROM intact, no edema. [] Neurologic: Alert and oriented X 3, normal motor function, normal sensory function, no focal deficits noted. [] Psychologic: Affect normal, judgement normal, mood normal. [] General: Oriented X3, Cooperative, No acute distress HEENT: EOMI, Mucous membr. moist/pink Lungs: Clear to auscultation, Normal air movement Heart: S1S2, RRR, no gallops, no murmurs Breasts: Not examined Abdomen: Normal bowel sounds, Soft, No tenderness, No masses Rectal Exam: not examined Extremities: No edema Skin: No significant lesion Neuro: Normal speech, Sensation intact, Cranial nerves 3-12 NL Psych/Mental Status: Mental status NL, Mood NL Vitals Vitals Vital Signs Date Time Temp Pulse Resp B/P (MAP) Pulse Ox O2 Delivery O2 Flow Rate FiO2 06/05/18 08:00 Room Air 06/05/18 07:00 98.7 78 20 157/91 (113) 98 98.7 Labs Labs Laboratory Tests Test 06/04/18 20:18 06/05/18 02:30 06/05/18 04:00 White Blood Count 5.6 x10^3/uL (4.0-11.0) Red Blood Count 4.38 x10^6/uL (4.30-5.70) Hemoglobin 12.6 g/dL (13.0-17.5) Hematocrit 38.3 % (39.0-53.0) Mean Corpuscular Volume 88 fL (79-100) Mean Corpuscular Hemoglobin 29 pg (25-35) Mean Corpuscular Hemoglobin Concent 33 g/dL (31-37) Red Cell Distribution Width 14.2 % (11.5-14.5) Platelet Count 293 x10^3/uL (140-400) Neutrophils (%) (Auto) 57 % (31-73) Lymphocytes (%) (Auto) 30 % (24-48) Monocytes (%) (Auto) 11 % (0-9) Eosinophils (%) (Auto) 2 % (0-3) Basophils (%) (Auto) 0 % (0-3) Neutrophils # (Auto) 3.2 x10^3uL (1.8-7.7) Lymphocytes # (Auto) 1.7 x10^3/uL (1.0-4.8) Monocytes # (Auto) 0.6 x10^3/uL (0.0-1.1) Eosinophils # (Auto) 0.1 x10^3/uL (0.0-0.7) Basophils # (Auto) 0.0 x10^3/uL (0.0-0.2) Prothrombin Time 13.1 SEC (11.7-14.0) Prothromb Time International Ratio 1.0 (0.8-1.1) D-Dimer (Ailin) < 0.27 ug/mlFEU Sodium Level 139 mmol/L (136-145) Potassium Level 3.7 mmol/L (3.5-5.1) Chloride Level 105 mmol/L (98-107) Carbon Dioxide Level 24 mmol/L (21-32) Anion Gap 10 (6-14) Blood Urea Nitrogen 11 mg/dL (8-26) Creatinine 1.2 mg/dL (0.7-1.3) Estimated GFR (Cockcroft-Gault) 80.7 BUN/Creatinine Ratio 9 (6-20) Glucose Level 98 mg/dL (70-99) Calcium Level 8.7 mg/dL (8.5-10.1) Total Bilirubin 0.2 mg/dL (0.2-1.0) Aspartate Amino Transf (AST/SGOT) 24 U/L (15-37) Alanine Aminotransferase (ALT/SGPT) 34 U/L (16-63) Alkaline Phosphatase 70 U/L (46-116) Troponin I Quantitative < 0.017 ng/mL (0.000-0.055) < 0.017 ng/mL (0.000-0.055) < 0.017 ng/mL (0.000-0.055) DG-Cvh-O-Type Natriuretic Peptide 9 pg/mL (0-124) Total Protein 8.0 g/dL (6.4-8.2) Albumin 3.6 g/dL (3.4-5.0) Albumin/Globulin Ratio 0.8 (1.0-1.7) Lipase 118 U/L (73-393) Triglycerides Level 61 mg/dL (0-150) Cholesterol Level 146 mg/dL (0-200) LDL Cholesterol, Calculated 90 mg/dL (0-100) VLDL Cholesterol, Calculated 12 mg/dL (0-40) Non-HDL Cholesterol Calculated 102 mg/dL (0-129) HDL Cholesterol 44 mg/dL (40-60) Cholesterol/HDL Ratio 3.3 Laboratory Tests Test 06/04/18 20:18 06/05/18 02:30 06/05/18 04:00 White Blood Count 5.6 x10^3/uL (4.0-11.0) Red Blood Count 4.38 x10^6/uL (4.30-5.70) Hemoglobin 12.6 g/dL (13.0-17.5) Hematocrit 38.3 % (39.0-53.0) Mean Corpuscular Volume 88 fL (79-100) Mean Corpuscular Hemoglobin 29 pg (25-35) Mean Corpuscular Hemoglobin Concent 33 g/dL (31-37) Red Cell Distribution Width 14.2 % (11.5-14.5) Platelet Count 293 x10^3/uL (140-400) Neutrophils (%) (Auto) 57 % (31-73) Lymphocytes (%) (Auto) 30 % (24-48) Monocytes (%) (Auto) 11 % (0-9) Eosinophils (%) (Auto) 2 % (0-3) Basophils (%) (Auto) 0 % (0-3) Neutrophils # (Auto) 3.2 x10^3uL (1.8-7.7) Lymphocytes # (Auto) 1.7 x10^3/uL (1.0-4.8) Monocytes # (Auto) 0.6 x10^3/uL (0.0-1.1) Eosinophils # (Auto) 0.1 x10^3/uL (0.0-0.7) Basophils # (Auto) 0.0 x10^3/uL (0.0-0.2) Prothrombin Time 13.1 SEC (11.7-14.0) Prothromb Time International Ratio 1.0 (0.8-1.1) D-Dimer (Ailin) < 0.27 ug/mlFEU Sodium Level 139 mmol/L (136-145) Potassium Level 3.7 mmol/L (3.5-5.1) Chloride Level 105 mmol/L (98-107) Carbon Dioxide Level 24 mmol/L (21-32) Anion Gap 10 (6-14) Blood Urea Nitrogen 11 mg/dL (8-26) Creatinine 1.2 mg/dL (0.7-1.3) Estimated GFR (Cockcroft-Gault) 80.7 BUN/Creatinine Ratio 9 (6-20) Glucose Level 98 mg/dL (70-99) Calcium Level 8.7 mg/dL (8.5-10.1) Total Bilirubin 0.2 mg/dL (0.2-1.0) Aspartate Amino Transf (AST/SGOT) 24 U/L (15-37) Alanine Aminotransferase (ALT/SGPT) 34 U/L (16-63) Alkaline Phosphatase 70 U/L (46-116) Troponin I Quantitative < 0.017 ng/mL (0.000-0.055) < 0.017 ng/mL (0.000-0.055) < 0.017 ng/mL (0.000-0.055) FA-Hot-H-Type Natriuretic Peptide 9 pg/mL (0-124) Total Protein 8.0 g/dL (6.4-8.2) Albumin 3.6 g/dL (3.4-5.0) Albumin/Globulin Ratio 0.8 (1.0-1.7) Lipase 118 U/L (73-393) Triglycerides Level 61 mg/dL (0-150) Cholesterol Level 146 mg/dL (0-200) LDL Cholesterol, Calculated 90 mg/dL (0-100) VLDL Cholesterol, Calculated 12 mg/dL (0-40) Non-HDL Cholesterol Calculated 102 mg/dL (0-129) HDL Cholesterol 44 mg/dL (40-60) Cholesterol/HDL Ratio 3.3 Images Images PORTABLE CHEST 1V History: MIDSTERNAL CHEST PAIN X1 DAY Comparison: February 27, 2017 Findings: AP portable view of the chest is submitted. Cardiac silhouette is able, borderline in size. There is no pneumothorax, pleural fluid, infiltrate. Impression: 1. There is no significant infiltrate or pleural fluid. There is stable borderline size of the cardiac silhouette. Electronically signed by: Precious Ramsey MD (06/04/2018 11:34 PM) [facility] DICTATED and SIGNED BY: PRECIOUS RAMSEY MD DATE: 06/04/18 0988 VTE Prophylaxis Ordered VTE Prophylaxis Devices: Yes VTE Pharmacological Prophylaxi: Yes Assessment/Plan Assessment/Plan impression atypical chest pain CMP NEG X 3 Gastroesophageal reflux disease // heavy alcohol use. Alcohol avoidance was discussed with the patient morbid obesity, SEVERE plan ok to d/c PER CARDIOLOGY see PCP NEXT WEEK CONSIDER OUT-PT STRESS TESTING PROTONIX AVOID ALCOHOL WEIGHT LOSS PROGRAM NEEDED D/W FAMILY IN ROOM ILANA JADE MD Jun 05, 2018 10:53
[2018-06-05 11:00] VITALS: BP 150/80
--- NOTE | 2018-06-05 11:17 | PDOC2 ---
CONSULT Date of Consult Date of Consult DATE: 06/05/18 TIME: 11:12 Reason for Consult Reason for Consult: Chest pain Referring Physician Referring Physician: Dr. Bishop Identification/Chief Complaint Chief Complaint Chest pain Source Source: Chart review, Patient History of Present Illness Reason for Visit: The patient is a 43-year-old male reports episodes of chest discomfort last evening and came to the emergency room for evaluation. He has a history of significant alcohol use as well as gastroesophageal reflux disease. Initial EKG showed no ischemic changes. Troponins have been normal 3. LDL was 90 with an HDL of 44. Chest x-ray shows no acute processes. Patient has been feeling well overnight. This morning he denies any chest pain, shortness of breath, dizziness or lightheadedness. Past Medical History Cardiovascular: No pertinent hx Pulmonary: No pertinent hx GI: GERD Renal/: No pertinent hx Past Surgical History Past Surgical History: Pacemaker, No pertinent history Family History Family History: Hypertension Social History ALCOHOL: heavy Current Medications Current Medications Current Medications Morphine Sulfate (Morphine Sulfate) 4 mg PRN Q2HR PRN IV PAIN; Start 06/04/18 at 22:30; Stop 06/05/18 at 22:29 Nitroglycerin (Nitrostat) 0.4 mg PRN Q5MIN PRN SL CHEST PAIN; Start 06/04/18 at 22:30; Stop 06/05/18 at 22:29 Active Scripts Active Reported Percocet 7.5-325 Mg Tablet (Oxycodone/Acetaminophen) 1 Each Tablet 1 Tab PO Q4- 6HRS PRN Allergies Allergies: Coded Allergies: No Known Drug Allergies (Unverified , 07/27/13) ROS General: YES: Fatigue Cardiovascular: yes Chest Pain Physical Exam General: No acute distress HEENT: Atraumatic Lungs: Clear to auscultation Heart: Regular rate Abdomen: Normal bowel sounds, No tenderness Vitals VITALS Vital Signs Date Time Temp Pulse Resp B/P (MAP) Pulse Ox O2 Delivery O2 Flow Rate FiO2 06/05/18 08:00 Room Air 06/05/18 07:00 98.7 78 20 157/91 (113) 98 98.7 Labs Labs Laboratory Tests Test 06/04/18 20:18 06/05/18 02:30 06/05/18 04:00 White Blood Count 5.6 x10^3/uL (4.0-11.0) Red Blood Count 4.38 x10^6/uL (4.30-5.70) Hemoglobin 12.6 g/dL (13.0-17.5) Hematocrit 38.3 % (39.0-53.0) Mean Corpuscular Volume 88 fL (79-100) Mean Corpuscular Hemoglobin 29 pg (25-35) Mean Corpuscular Hemoglobin Concent 33 g/dL (31-37) Red Cell Distribution Width 14.2 % (11.5-14.5) Platelet Count 293 x10^3/uL (140-400) Neutrophils (%) (Auto) 57 % (31-73) Lymphocytes (%) (Auto) 30 % (24-48) Monocytes (%) (Auto) 11 % (0-9) Eosinophils (%) (Auto) 2 % (0-3) Basophils (%) (Auto) 0 % (0-3) Neutrophils # (Auto) 3.2 x10^3uL (1.8-7.7) Lymphocytes # (Auto) 1.7 x10^3/uL (1.0-4.8) Monocytes # (Auto) 0.6 x10^3/uL (0.0-1.1) Eosinophils # (Auto) 0.1 x10^3/uL (0.0-0.7) Basophils # (Auto) 0.0 x10^3/uL (0.0-0.2) Prothrombin Time 13.1 SEC (11.7-14.0) Prothromb Time International Ratio 1.0 (0.8-1.1) D-Dimer (Ailin) < 0.27 ug/mlFEU Sodium Level 139 mmol/L (136-145) Potassium Level 3.7 mmol/L (3.5-5.1) Chloride Level 105 mmol/L (98-107) Carbon Dioxide Level 24 mmol/L (21-32) Anion Gap 10 (6-14) Blood Urea Nitrogen 11 mg/dL (8-26) Creatinine 1.2 mg/dL (0.7-1.3) Estimated GFR (Cockcroft-Gault) 80.7 BUN/Creatinine Ratio 9 (6-20) Glucose Level 98 mg/dL (70-99) Calcium Level 8.7 mg/dL (8.5-10.1) Total Bilirubin 0.2 mg/dL (0.2-1.0) Aspartate Amino Transf (AST/SGOT) 24 U/L (15-37) Alanine Aminotransferase (ALT/SGPT) 34 U/L (16-63) Alkaline Phosphatase 70 U/L (46-116) Troponin I Quantitative < 0.017 ng/mL (0.000-0.055) < 0.017 ng/mL (0.000-0.055) < 0.017 ng/mL (0.000-0.055) KA-Ton-W-Type Natriuretic Peptide 9 pg/mL (0-124) Total Protein 8.0 g/dL (6.4-8.2) Albumin 3.6 g/dL (3.4-5.0) Albumin/Globulin Ratio 0.8 (1.0-1.7) Lipase 118 U/L (73-393) Triglycerides Level 61 mg/dL (0-150) Cholesterol Level 146 mg/dL (0-200) LDL Cholesterol, Calculated 90 mg/dL (0-100) VLDL Cholesterol, Calculated 12 mg/dL (0-40) Non-HDL Cholesterol Calculated 102 mg/dL (0-129) HDL Cholesterol 44 mg/dL (40-60) Cholesterol/HDL Ratio 3.3 Laboratory Tests Test 06/04/18 20:18 06/05/18 02:30 06/05/18 04:00 White Blood Count 5.6 x10^3/uL (4.0-11.0) Red Blood Count 4.38 x10^6/uL (4.30-5.70) Hemoglobin 12.6 g/dL (13.0-17.5) Hematocrit 38.3 % (39.0-53.0) Mean Corpuscular Volume 88 fL (79-100) Mean Corpuscular Hemoglobin 29 pg (25-35) Mean Corpuscular Hemoglobin Concent 33 g/dL (31-37) Red Cell Distribution Width 14.2 % (11.5-14.5) Platelet Count 293 x10^3/uL (140-400) Neutrophils (%) (Auto) 57 % (31-73) Lymphocytes (%) (Auto) 30 % (24-48) Monocytes (%) (Auto) 11 % (0-9) Eosinophils (%) (Auto) 2 % (0-3) Basophils (%) (Auto) 0 % (0-3) Neutrophils # (Auto) 3.2 x10^3uL (1.8-7.7) Lymphocytes # (Auto) 1.7 x10^3/uL (1.0-4.8) Monocytes # (Auto) 0.6 x10^3/uL (0.0-1.1) Eosinophils # (Auto) 0.1 x10^3/uL (0.0-0.7) Basophils # (Auto) 0.0 x10^3/uL (0.0-0.2) Prothrombin Time 13.1 SEC (11.7-14.0) Prothromb Time International Ratio 1.0 (0.8-1.1) D-Dimer (Ailin) < 0.27 ug/mlFEU Sodium Level 139 mmol/L (136-145) Potassium Level 3.7 mmol/L (3.5-5.1) Chloride Level 105 mmol/L (98-107) Carbon Dioxide Level 24 mmol/L (21-32) Anion Gap 10 (6-14) Blood Urea Nitrogen 11 mg/dL (8-26) Creatinine 1.2 mg/dL (0.7-1.3) Estimated GFR (Cockcroft-Gault) 80.7 BUN/Creatinine Ratio 9 (6-20) Glucose Level 98 mg/dL (70-99) Calcium Level 8.7 mg/dL (8.5-10.1) Total Bilirubin 0.2 mg/dL (0.2-1.0) Aspartate Amino Transf (AST/SGOT) 24 U/L (15-37) Alanine Aminotransferase (ALT/SGPT) 34 U/L (16-63) Alkaline Phosphatase 70 U/L (46-116) Troponin I Quantitative < 0.017 ng/mL (0.000-0.055) < 0.017 ng/mL (0.000-0.055) < 0.017 ng/mL (0.000-0.055) NE-Dco-O-Type Natriuretic Peptide 9 pg/mL (0-124) Total Protein 8.0 g/dL (6.4-8.2) Albumin 3.6 g/dL (3.4-5.0) Albumin/Globulin Ratio 0.8 (1.0-1.7) Lipase 118 U/L (73-393) Triglycerides Level 61 mg/dL (0-150) Cholesterol Level 146 mg/dL (0-200) LDL Cholesterol, Calculated 90 mg/dL (0-100) VLDL Cholesterol, Calculated 12 mg/dL (0-40) Non-HDL Cholesterol Calculated 102 mg/dL (0-129) HDL Cholesterol 44 mg/dL (40-60) Cholesterol/HDL Ratio 3.3 Images Images Chest x-ray shows no acute changes. Assessment/Plan Assessment/Plan 1. Chest pain. Patient is pain-free. EKG shows no ischemic changes. Troponin have been normal 3. The patient has a history of heavy alcohol use with gastroesophageal reflux disease. Would increase activities. If the patient has no further discomfort today I believe he may be discharged from a cardiac viewpoint. We'll follow-up with a office visit and consider an outpatient stress test in the next 2-3 weeks. We'll contact the patient Thursday for follow- up. 2. Gastroesophageal reflux disease and significant alcohol use. Alcohol use was discussed with the patient. Consider proton pump inhibitors. Thank you for allowing us to participate in the care of your patient. RUBIA JERRY MD Jun 05, 2018 11:17
--- NOTE | 2018-06-05 13:56 | PDOC3 ---
Discharge Summary Date of Admission: Jun 04, 2018 Date of Discharge: Jun 05, 2018 Follow-Up: 3-5 days Admitting Diagnosis comment: DISCHARGE DX Assessment/Plan impression atypical chest pain CMP NEG X 3 Gastroesophageal reflux disease // heavy alcohol use. Alcohol avoidance was discussed with the patient morbid obesity, SEVERE plan ok to d/c PER CARDIOLOGY see PCP NEXT WEEK CONSIDER OUT-PT STRESS TESTING PROTONIX PO AVOID ALCOHOL WEIGHT LOSS PROGRAM NEEDED D/W FAMILY IN ROOM Physical Exam Physical Exam Constitutional: Well developed, VERY obese, no acute distress, non-toxic appearance. [] HENT: Normocephalic, atraumatic, oropharynx moist, no oral exudates, nose normal. [] Eyes: PERRLA, EOMI Neck: Normal range of motion, no tenderness, supple, no stridor. [] Cardiovascular:Heart rate regular rhythm, no murmur [] Lungs & Thorax: Bilateral breath sounds clear to auscultation [] Abdomen: Bowel sounds normal, soft, no tenderness, no masses, no pulsatile masses. [] Skin: Warm, dry, no erythema, no rash. Extremities: No tenderness, no cyanosis, no clubbing, ROM intact, no edema. [] Neurologic: Alert and oriented X 3, normal motor function, normal sensory function, no focal deficits noted. [] Psychologic: Affect normal, judgement normal, mood normal. [] General: Oriented X3, Cooperative, No acute distress HEENT: EOMI, Mucous membr. moist/pink Lungs: Clear to auscultation, Normal air movement Heart: S1S2, RRR, no gallops, no murmurs Breasts: Not examined Abdomen: Normal bowel sounds, Soft, No tenderness, No masses Rectal Exam: not examined Extremities: No edema Skin: No significant lesion Neuro: Normal speech, Sensation intact, Cranial nerves 3-12 NL Psych/Mental Status: Mental status NL, Mood NL Brief Hospital Course Mr. Ng is a 43 old [sex] who presented with [CHEST PAIN..// GERD ] CONDITION AT DISCHARGE: Improved Discharge Medications Current Medications Morphine Sulfate (Morphine Sulfate) 4 mg PRN Q2HR PRN IV PAIN; Start 06/04/18 at 22:30; Stop 06/05/18 at 22:29 Nitroglycerin (Nitrostat) 0.4 mg PRN Q5MIN PRN SL CHEST PAIN; Start 06/04/18 at 22:30; Stop 06/05/18 at 22:29 Active Scripts Active Reported Percocet 7.5-325 Mg Tablet (Oxycodone/Acetaminophen) 1 Each Tablet 1 Tab PO Q4- 6HRS PRN Vital Signs Vital Signs Date Time Temp Pulse Resp B/P (MAP) Pulse Ox O2 Delivery O2 Flow Rate FiO2 06/05/18 11:00 98.7 76 20 150/80 (103) 98 Room Air 98.7 Labs Laboratory Tests Test 06/04/18 20:18 06/05/18 02:30 06/05/18 04:00 White Blood Count 5.6 x10^3/uL (4.0-11.0) Red Blood Count 4.38 x10^6/uL (4.30-5.70) Hemoglobin 12.6 g/dL (13.0-17.5) Hematocrit 38.3 % (39.0-53.0) Mean Corpuscular Volume 88 fL (79-100) Mean Corpuscular Hemoglobin 29 pg (25-35) Mean Corpuscular Hemoglobin Concent 33 g/dL (31-37) Red Cell Distribution Width 14.2 % (11.5-14.5) Platelet Count 293 x10^3/uL (140-400) Neutrophils (%) (Auto) 57 % (31-73) Lymphocytes (%) (Auto) 30 % (24-48) Monocytes (%) (Auto) 11 % (0-9) Eosinophils (%) (Auto) 2 % (0-3) Basophils (%) (Auto) 0 % (0-3) Neutrophils # (Auto) 3.2 x10^3uL (1.8-7.7) Lymphocytes # (Auto) 1.7 x10^3/uL (1.0-4.8) Monocytes # (Auto) 0.6 x10^3/uL (0.0-1.1) Eosinophils # (Auto) 0.1 x10^3/uL (0.0-0.7) Basophils # (Auto) 0.0 x10^3/uL (0.0-0.2) Prothrombin Time 13.1 SEC (11.7-14.0) Prothromb Time International Ratio 1.0 (0.8-1.1) D-Dimer (Ailin) < 0.27 ug/mlFEU Sodium Level 139 mmol/L (136-145) Potassium Level 3.7 mmol/L (3.5-5.1) Chloride Level 105 mmol/L (98-107) Carbon Dioxide Level 24 mmol/L (21-32) Anion Gap 10 (6-14) Blood Urea Nitrogen 11 mg/dL (8-26) Creatinine 1.2 mg/dL (0.7-1.3) Estimated GFR (Cockcroft-Gault) 80.7 BUN/Creatinine Ratio 9 (6-20) Glucose Level 98 mg/dL (70-99) Calcium Level 8.7 mg/dL (8.5-10.1) Total Bilirubin 0.2 mg/dL (0.2-1.0) Aspartate Amino Transf (AST/SGOT) 24 U/L (15-37) Alanine Aminotransferase (ALT/SGPT) 34 U/L (16-63) Alkaline Phosphatase 70 U/L (46-116) Troponin I Quantitative < 0.017 ng/mL (0.000-0.055) < 0.017 ng/mL (0.000-0.055) < 0.017 ng/mL (0.000-0.055) KZ-Rqo-O-Type Natriuretic Peptide 9 pg/mL (0-124) Total Protein 8.0 g/dL (6.4-8.2) Albumin 3.6 g/dL (3.4-5.0) Albumin/Globulin Ratio 0.8 (1.0-1.7) Lipase 118 U/L (73-393) Triglycerides Level 61 mg/dL (0-150) Cholesterol Level 146 mg/dL (0-200) LDL Cholesterol, Calculated 90 mg/dL (0-100) VLDL Cholesterol, Calculated 12 mg/dL (0-40) Non-HDL Cholesterol Calculated 102 mg/dL (0-129) HDL Cholesterol 44 mg/dL (40-60) Cholesterol/HDL Ratio 3.3 Laboratory Tests Test 06/04/18 20:18 06/05/18 02:30 06/05/18 04:00 White Blood Count 5.6 x10^3/uL (4.0-11.0) Red Blood Count 4.38 x10^6/uL (4.30-5.70) Hemoglobin 12.6 g/dL (13.0-17.5) Hematocrit 38.3 % (39.0-53.0) Mean Corpuscular Volume 88 fL (79-100) Mean Corpuscular Hemoglobin 29 pg (25-35) Mean Corpuscular Hemoglobin Concent 33 g/dL (31-37) Red Cell Distribution Width 14.2 % (11.5-14.5) Platelet Count 293 x10^3/uL (140-400) Neutrophils (%) (Auto) 57 % (31-73) Lymphocytes (%) (Auto) 30 % (24-48) Monocytes (%) (Auto) 11 % (0-9) Eosinophils (%) (Auto) 2 % (0-3) Basophils (%) (Auto) 0 % (0-3) Neutrophils # (Auto) 3.2 x10^3uL (1.8-7.7) Lymphocytes # (Auto) 1.7 x10^3/uL (1.0-4.8) Monocytes # (Auto) 0.6 x10^3/uL (0.0-1.1) Eosinophils # (Auto) 0.1 x10^3/uL (0.0-0.7) Basophils # (Auto) 0.0 x10^3/uL (0.0-0.2) Prothrombin Time 13.1 SEC (11.7-14.0) Prothromb Time International Ratio 1.0 (0.8-1.1) D-Dimer (Ailin) < 0.27 ug/mlFEU Sodium Level 139 mmol/L (136-145) Potassium Level 3.7 mmol/L (3.5-5.1) Chloride Level 105 mmol/L (98-107) Carbon Dioxide Level 24 mmol/L (21-32) Anion Gap 10 (6-14) Blood Urea Nitrogen 11 mg/dL (8-26) Creatinine 1.2 mg/dL (0.7-1.3) Estimated GFR (Cockcroft-Gault) 80.7 BUN/Creatinine Ratio 9 (6-20) Glucose Level 98 mg/dL (70-99) Calcium Level 8.7 mg/dL (8.5-10.1) Total Bilirubin 0.2 mg/dL (0.2-1.0) Aspartate Amino Transf (AST/SGOT) 24 U/L (15-37) Alanine Aminotransferase (ALT/SGPT) 34 U/L (16-63) Alkaline Phosphatase 70 U/L (46-116) Troponin I Quantitative < 0.017 ng/mL (0.000-0.055) < 0.017 ng/mL (0.000-0.055) < 0.017 ng/mL (0.000-0.055) HZ-Stl-H-Type Natriuretic Peptide 9 pg/mL (0-124) Total Protein 8.0 g/dL (6.4-8.2) Albumin 3.6 g/dL (3.4-5.0) Albumin/Globulin Ratio 0.8 (1.0-1.7) Lipase 118 U/L (73-393) Triglycerides Level 61 mg/dL (0-150) Cholesterol Level 146 mg/dL (0-200) LDL Cholesterol, Calculated 90 mg/dL (0-100) VLDL Cholesterol, Calculated 12 mg/dL (0-40) Non-HDL Cholesterol Calculated 102 mg/dL (0-129) HDL Cholesterol 44 mg/dL (40-60) Cholesterol/HDL Ratio 3.3 Allergies Allergies Coded Allergies Type Severity Reaction Last Updated Verified No Known Drug Allergies 07/27/13 No Disposition/Orders: D/C to Home Patient Instructions D/C PLANNING 32 MIN ILANA JADE MD Jun 05, 2018 13:56
[2018-06-05] MEDS ORDERED: PANT20TA2 PO (13:58)
--- NOTE | 2018-06-05 14:00 | DISCH ---
DISCHARGE INSTRUCTIONS Condition on Discharge Condition on Discharge: Stable Activity After Discharge Activity Instructions for Disc: Activity as tolerated, Avoid exertion Lifting Instructions after Dis: No heavy lifting Exercise Instruction after Dis: Walk 10 min, 3 x per day Driving Instructions after Dis: Do not drive today Diet after Discharge Diet after Discharge: Regular Liquid Texture: Thin Liquid Checks after Discharge Checks after discharge: Check blood press - daily Contacting the DRMichi after DC Call your doctor for: Concerns you may have Warfarin Follow-Up Warfarin Follow UP: SEE PCP NEXT WEEK FOR SCHEDULE STRESS TEST ILANA JADE MD Jun 05, 2018 14:00
--- NOTE | 2018-06-05 15:55 | NUR ---
Discharge Note: HUMBERTO WANG Discharge instructions and discharge home medications reviewed with Patient and a copy given. All questions have been answered and understanding verbalized. The following instructions and handouts were given: Diet for gastroesophageal reflux disease, Adult; Alcohol Intoxication; Alcohol Problems. Discontinued lines and drains: peripheral IV removed, catheter intact. Patient discharged to home with self-care via ambulation to private vehicle.
== END 2018-06-05 15:00 | disposition home or self-care (01) ==
LOC: ER 20:02 → 2 NORTH 22:20
PROVIDERS: ADMIT Internal Medicine; ATTEND Internal Medicine
DX: R07.89 Other chest pain (principal); K21.9 Gastro-esophageal reflux disease without esophagitis; F10.20 Alcohol dependence, uncomplicated; R42 Dizziness and giddiness; F17.210 Nicotine dependence, cigarettes, uncomplicated; E66.01 Morbid (severe) obesity due to excess calories; Z95.0 Presence of cardiac pacemaker; Z82.49 Family history of ischemic heart disease and other diseases of the circulatory system
CPT/HCPCS: 36415; 71045; 80053; 80061; 83690; 83880; 84484; 85025; 85379; 85610; 93005; 99284; G0378; G0379

== ENCOUNTER 2018-07-02 17:28 | Inpatient (IN) | payer OTHER ==
[~2018-07-02] VITALS: Ht 182.9 cm; Wt 188.8 kg
[~2018-07-02 17:28] MED LIST changes: +PANT20TA2 PO
[2018-07-02] MEDS ORDERED: ASPIRIN 325 MG TABLET PO ONE (18:30)
[2018-07-02] MEDS ORDERED: IV NORMAL SALINE 1000ML BAG 1,000 ML IV ONE (18:30)
[2018-07-02 18:34] LABS: BASO % 0 % (0-3); EOS # 0.1 x10^3/uL (0.0-0.7); EOS % 1 % (0-3); HEMATOCRIT 36.4 % (39.0-53.0); HEMOGLOBIN 11.8 g/dL (13.0-17.5); LYMPH # 1.8 x10^3/uL (1.0-4.8); LYMPH % 28 % (24-48); MEAN CORPUSCULAR HEMOGLOBIN 29 pg (25-35); MEAN CORPUSCULAR HGB CONC 32 g/dL (31-37); MEAN CORPUSCULAR VOLUME 89 fL (79-100); MONO # 0.6 x10^3/uL (0.0-1.1); MONO % 10 % (0-9); NEUT % 61 % (31-73); PLATELET COUNT 338 x10^3/uL (140-400); RED BLOOD COUNT 4.11 x10^6/uL (4.30-5.70); RED CELL DISTRIBUTION WIDTH 13.7 % (11.5-14.5); WHITE BLOOD COUNT 6.6 x10^3/uL (4.0-11.0)
--- NOTE | 2018-07-02 18:36 | PHYS DOC ---
Past Medical History Past Medical History: Alcoholism, GERD Past Surgical History: No Surgical History Alcohol Use: Heavy Drug Use: Marijuana Adult General Chief Complaint Chief Complaint: SHORTNESS OF BREATH HPI HPI Patient is a 43 year old male who presents with shortness of breath. He states that this evening around 4:00 when he was beginning to work he had an episode of shortness of breath and chest pain while exerting himself. He described the chest pain as a stabbing/pressure sensation located in the center of his chest with no radiation. He is currently not experiencing chest pain but when he was having the chest pain he rated as a 6 out of 10. During this episode he also experienced some sweatiness and patient states he was "feeling off". Patient also had a similar episode one month ago where he was admitted and received a echo. Patient was told to get an outpatient stress test which she has scheduled for the end of July. Review of Systems Review of Systems Constitutional: Denies fever or chills Eyes: Denies vision changes or eye pain HENT: Denies nasal congestion or sore throat Respiratory: Reports shortness of breath. Denies cough. Cardiovascular: Reports chest pain. Denies palpitations GI: Denies abdominal pain, nausea, vomiting : Denies dysuria or hematuria Musculoskeletal: Denies back pain or joint pain Integument: Denies rash or skin lesions Neurologic: Denies headache or focal weakness Complete systems were reviewed and found to be within normal limits, except as documented in this note. Current Medications Current Medications Current Medications Medications (Trade) Dose Ordered Sig/Dmitri Start Time Stop Time Status Last Admin Dose Admin Aspirin (Sanam Aspirin) 325 mg 1X ONCE 07/02/18 18:30 07/02/18 18:31 DC 07/02/18 18:44 325 MG Info (CONTRAST GIVEN -- Rx MONITORING) 1 each PRN DAILY PRN 07/02/18 18:45 07/04/18 18:44 Iohexol (Omnipaque 350 Mg/ml) 100 ml 1X ONCE 07/02/18 18:45 07/02/18 18:46 DC 07/02/18 19:38 100 ML Sodium Chloride 1,000 ml @ 1,000 mls/hr 1X ONCE 07/02/18 18:30 07/02/18 19:29 DC 07/02/18 18:44 1,000 MLS/HR Allergies Allergies Allergies Coded Allergies Type Severity Reaction Last Updated Verified No Known Drug Allergies 07/27/13 No Physical Exam Physical Exam Constitutional: Well developed, well nourished, no acute distress, non-toxic appearance. HENT: Normocephalic, atraumatic, oropharynx moist Eyes: EOMI, conjunctiva normal. Neck: Normal range of motion, supple. Cardiovascular:Heart rate regular rhythm, no murmur Lungs & Thorax: Bilateral breath sounds clear to auscultation, no rhonchi rales or wheezes. Abdomen: Bowel sounds normal, soft, no tenderness Skin: Warm, dry, no erythema. Back: No tenderness, no CVA tenderness. Extremities: No cyanosis, no edema, no unilateral leg swelling Neurologic: Alert and oriented X 3, focal neurological deficits. Psychologic: Affect normal, mood normal. Current Patient Data Vital Signs Vital Signs Date Time Temp Pulse Resp B/P (MAP) Pulse Ox O2 Delivery O2 Flow Rate FiO2 07/02/18 21:06 88 19 116/73 (87) 96 Room Air 07/02/18 17:36 98.8 98.8 Lab Values Laboratory Tests Test 07/02/18 17:58 07/02/18 18:50 White Blood Count 6.6 x10^3/uL (4.0-11.0) Red Blood Count 4.11 x10^6/uL (4.30-5.70) L Hemoglobin 11.8 g/dL (13.0-17.5) L Hematocrit 36.4 % (39.0-53.0) L Mean Corpuscular Volume 89 fL (79-100) Mean Corpuscular Hemoglobin 29 pg (25-35) Mean Corpuscular Hemoglobin Concent 32 g/dL (31-37) Red Cell Distribution Width 13.7 % (11.5-14.5) Platelet Count 338 x10^3/uL (140-400) Neutrophils (%) (Auto) 61 % (31-73) Lymphocytes (%) (Auto) 28 % (24-48) Monocytes (%) (Auto) 10 % (0-9) H Eosinophils (%) (Auto) 1 % (0-3) Basophils (%) (Auto) 0 % (0-3) Neutrophils # (Auto) 4.0 x10^3uL (1.8-7.7) Lymphocytes # (Auto) 1.8 x10^3/uL (1.0-4.8) Monocytes # (Auto) 0.6 x10^3/uL (0.0-1.1) Eosinophils # (Auto) 0.1 x10^3/uL (0.0-0.7) Basophils # (Auto) 0.0 x10^3/uL (0.0-0.2) Prothrombin Time 13.0 SEC (11.7-14.0) Prothrombin Time INR 1.0 (0.8-1.1) PTT 30 SEC (24-38) Sodium Level 140 mmol/L (136-145) Potassium Level 4.0 mmol/L (3.5-5.1) Chloride Level 103 mmol/L (98-107) Carbon Dioxide Level 23 mmol/L (21-32) Anion Gap 14 (6-14) Blood Urea Nitrogen 10 mg/dL (8-26) Creatinine 1.1 mg/dL (0.7-1.3) Estimated GFR (Cockcroft-Gault) 89.3 BUN/Creatinine Ratio 9 (6-20) Glucose Level 89 mg/dL (70-99) Calcium Level 8.6 mg/dL (8.5-10.1) Magnesium Level 2.3 mg/dL (1.8-2.4) Total Bilirubin 0.2 mg/dL (0.2-1.0) Aspartate Amino Transferase (AST) 20 U/L (15-37) Alanine Aminotransferase (ALT) 29 U/L (16-63) Alkaline Phosphatase 65 U/L (46-116) Creatine Kinase 298 U/L (39-308) Creatine Kinase MB (Mass) 2.2 ng/mL (0.0-3.6) Creatine Kinase MB Relative Index 0.7 % (0-4) Troponin I Quantitative < 0.017 ng/mL (0.000-0.055) NS-Uun-N-Type Natriuretic Peptide 24 pg/mL (0-124) Total Protein 7.3 g/dL (6.4-8.2) Albumin 3.5 g/dL (3.4-5.0) Albumin/Globulin Ratio 0.9 (1.0-1.7) L Lipase 113 U/L (73-393) Laboratory Tests 07/02/18 17:58 Laboratory Tests 07/02/18 18:50 EKG EKG [] Radiology/Procedures Radiology/Procedures EKG at 1741, normal sinus rhythm rate of 97 bpm, no ST elevation or signs of ischemia. Course & Med Decision Making Course & Med Decision Making 43-year-old male presenting to the emergency department for complaint of shortness of breath and chest pain. Patient states short of breath and chest pain occurred while he was exerting himself at work. He had a similar episode one month ago where he was admitted to the hospital and had an echo. Patient supposed to have an outpatient stress test done at the end of July. Labs and imaging obtained and posted to chart. Patient received an aspirin upon arrival. Symptomatic treatment provided with interval improvement. Patient does report a history of having a blood clot under his testicle. Due to this uncertain history of blood clot a CT angiogram was performed. CT angiogram demonstrated no PE. Due to recent similar admission and significant time before stress test is scheduled to be completed, patient likely would benefit from admission. Patient requiring admission for further evaluation and treatment. Discussed with Dr. Pollock who is in agreement with admission. Discussed findings and plan with patient and family, who acknowledge understanding and agreement. [] Dragon Disclaimer Dragon Disclaimer This electronic medical record was generated, in whole or in part, using a voice recognition dictation system. Departure Departure Impression: Primary Impression: Chest pain Disposition: ADMITTED INPATIENT Admitting Physician: Patrick Perez Condition: GUARDED Referrals: NO PCP (PCP) Problem Qualifiers Primary Impression: Chest pain Chest pain type: unspecified Qualified Codes: R07.9 - Chest pain, unspecified LEONARD BONE DO Jul 02, 2018 18:36
[2018-07-02] MEDS ORDERED: CONTRAST GIVEN. MC PRN (18:45)
[2018-07-02] MEDS ORDERED: IOHEXOL 350 MG/ML 100 ML VIAL. IV ONE (18:45)
[2018-07-02 19:14] LABS: CALCIUM 8.6 mg/dL (8.5-10.1); CREATININE 1.1 mg/dL (0.7-1.3); GFR 89.3
[2018-07-02 19:20] LABS: ALBUMIN 3.5 g/dL (3.4-5.0); ALBUMIN/GLOBULIN RATIO 0.9 (1.0-1.7); MAGNESIUM 2.3 mg/dL (1.8-2.4); TOTAL BILIRUBIN 0.2 mg/dL (0.2-1.0); TOTAL PROTEIN 7.3 g/dL (6.4-8.2)
--- NOTE | 2018-07-02 21:16 | RAD ---
CT angiogram of the chest with contrast: Reason for examination: Chest pain. Evaluate for pulmonary embolus. Helical images were obtained through the chest with intravenous administration of 100 cc Omnipaque 350 using PE protocol. 3-D MIPS reconstruction was performed in sagittal and coronal planes. Exposure: One or more of the following individualized dose reduction techniques were utilized for this examination: 1. Automated exposure control 2. Adjustment of the mA and/or kV according to patient size 3. Use of iterative reconstruction technique. No abnormality seen at the thyroid gland. The trachea and mainstem bronchi show no intraluminal lesions. No abnormality seen at the esophagus. The thoracic aorta shows no aneurysmal dilatation or dissection. The heart size is enlarged with no pericardial effusion. There is no evidence of pulmonary embolus. The lung duong show no consolidated infiltrates, pleural effusions or pneumothorax. There are some hypertrophic changes in the spine but no acute bony abnormality seen. No abnormality seen at the liver, spleen or adrenal glands. The gallbladder is contracted but there is a large amount of gastric content in the stomach. IMPRESSION: No pulmonary embolus. No gross infiltrates or pleural effusions. Cardiomegaly. Contracted gallbladder however there is a large amount of gastric content in the stomach and the patient has not been nothing by mouth. Electronically signed by: Ashlyn Rivera MD (07/02/2018 9:14 PM) [facility]
[2018-07-02] MEDS ORDERED: fentaNYL PF VIAL 100 MCG/2 ML VIAL IV PRN (21:30)
[2018-07-02] MEDS ORDERED: ONDANSETRON PF 4 MG/2 ML VIAL. IV PRN (21:30)
[2018-07-02 22:57] VITALS: BP 145/98
[2018-07-03 02:47] VITALS: BP 133/74
[2018-07-03 07:36] VITALS: BP 164/88
--- NOTE | 2018-07-03 11:35 | PDOC2 ---
CARDIOLOGY CONSULT NOTE CHEIF COMPLAINT: Exertional chest pain HPI: Pt. is a 43 y.o man admitted for substernal chest pain after lifting heavy boxes at work. Pt endorses the pain is reproducible with pressure. Since admission, Pt had an episode of sharp pain in the anterior chest in the am. He rates his pain as 8/10 at its max (10 being worst). He was given fentanyl which relieved the pain completely. Pt also admits to consume alcohol excessively. Denies F/C, N/V, palpitation, syncope or SOB. 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 PMHX: 1. Probable ALEE 2. Probable alcoholism 3. Non-cardiac chest pain with admission on 05/2018 SOCHX: EtOH: 4-5 beers per day. Him and family admit to possible alcoholism Drug: none. Hx of marijuana use Tob: none FAMHX: Mother: DM CURRENT MEDS: Current Medications Medications (Trade) Dose Ordered Sig/Dmitri Start Time Stop Time Status Last Admin Dose Admin Aspirin (Sanam Aspirin) 325 mg 1X ONCE 07/02/18 18:30 07/02/18 18:31 DC 07/02/18 18:44 325 MG Fentanyl Citrate (Fentanyl 2ml Vial) 50 mcg PRN Q2HR PRN 07/02/18 21:30 07/03/18 09:09 50 MCG Info (CONTRAST GIVEN -- Rx MONITORING) 1 each PRN DAILY PRN 07/02/18 18:45 07/04/18 18:44 Iohexol (Omnipaque 350 Mg/ml) 100 ml 1X ONCE 07/02/18 18:45 07/02/18 18:46 DC 07/02/18 19:38 100 ML Ondansetron HCl (Zofran) 4 mg PRN Q8HRS PRN 07/02/18 21:30 07/03/18 21:29 Sodium Chloride 1,000 ml @ 1,000 mls/hr 1X ONCE 07/02/18 18:30 07/02/18 19:29 DC 07/02/18 18:44 1,000 MLS/HR ALLERGIES: Allergies Coded Allergies Type Severity Reaction Last Updated Verified No Known Drug Allergies 07/27/13 No ROS: Negative for 12/27 systems reviewed. PHYSICAL EXAM: Vital Signs: Vital Signs Date Time Temp Pulse Resp B/P (MAP) Pulse Ox O2 Delivery O2 Flow Rate FiO2 07/03/18 09:39 96 Room Air 07/03/18 09:09 18 07/03/18 07:36 98.0 93 164/88 (113) 98.0 I & O Intake and Output 07/03/18 06:59 Intake Total 500 ml Balance 500 ml Intake Oral 500 ml Physical Exam: General: A&O x 3, appear as stated age Heart: RRR no murmur, no S3, S4 Lung: CTAB no wheezes, crackles Chest: moderate to severe tenderness on palpation of the left anterior chest lateral to sternal border. Abs: soft, non distended, no tenderness, rigidity, guarding. UE: +2 RA pulses b/l. Skin: dry, moist, warm, no rashes. DIAGNOSTIC TESTING: Trop negative x 3 CTA negative for embolus. ASSESSMENT: 1. Reproducible chest pain - with palpation with troponin<0.017 and normal EKG by report. 2. Chronic EtOH use - encouraged to seek care and therapy. 3. Cardiomegaly - likely related to heavy alcohol use and ALEE. PLAN: 1. Patient with clearly reproducible chest pain and has no baseline exertional symptoms. Low risk for ACS. Due to risk factors of obesity, ALEE and recurrent chest pain admissions, plan for outpt risk stratification next week with echo and possible stress testing. LEATHA ROJAS MD Jul 03, 2018 11:35
[2018-07-03 11:47] VITALS: BP 176/101
--- NOTE | 2018-07-03 12:59 | PDOC1 ---
History and Physical Date of Admission Date of Admission DATE: 07/03/18 TIME: 12:59 Identification/Chief Complaint Chief Complaint Chest pain Source Source: Patient History of Present Illness History of Present Illness Patient is a 43 yo male who presents with shortness of breath. He states that in the evening around 4:00 when he was beginning to work he had an episode of shortness of breath and chest pain while exerting himself. He described the chest pain as a stabbing/pressure sensation located in the center of his chest with no radiation after lifting some heavy boxes at work. It is reproducible to palpation. He is currently not experiencing chest pain until touched, but when he was having the chest pain he rated as a 6 out of 10. During this episode he also experienced some sweatiness and patient states he was "feeling off". Patient also had a similar episode one month ago where he was admitted and received a echo. Patient was told to get an outpatient stress test which she has scheduled for the end of July. Fentanyl completed relieved his pain. He admits to drinking 4-5 beers daily. He had negative troponins, negative EKG, and CTPA that showed cardiomegaly and no PE. Seen by cardiology Past Medical History Cardiovascular: No pertinent hx Pulmonary: No pertinent hx GI: GERD Rheumatologic: No pertinent hx Infectious disease: No pertinent hx Renal/: No pertinent hx Past Surgical History Past Surgical History: No pertinent history Family History Family History: Alcohol Abuse, Hypertension Social History Smoke: No ALCOHOL: heavy Drugs: None Current Medications Current Medications Current Medications Aspirin (Sanam Aspirin) 325 mg 1X ONCE PO Last administered on 07/02/18at 18:44 ; Start 07/02/18 at 18:30; Stop 07/02/18 at 18:31; Status DC Sodium Chloride 1,000 ml @ 1,000 mls/hr 1X ONCE IV Last administered on at 18:44; Start 07/02/18 at 18:30; Stop 07/02/18 at 19:29; Status DC Iohexol (Omnipaque 350 Mg/ml) 100 ml 1X ONCE IV Last administered on at 19:38; Start 07/02/18 at 18:45; Stop 07/02/18 at 18:46; Status DC Info (CONTRAST GIVEN -- Rx MONITORING) 1 each PRN DAILY PRN MC SEE COMMENTS; Start 07/02/18 at 18:45; Stop 07/04/18 at 18:44 Ondansetron HCl (Zofran) 4 mg PRN Q8HRS PRN IV NAUSEA/VOMITING; Start 07/02/18 at 21:30; Stop 07/03/18 at 21:29 Fentanyl Citrate (Fentanyl 2ml Vial) 50 mcg PRN Q2HR PRN IV PAIN Last administered on 07/03/18at 09:09; Start 07/02/18 at 21:30 Active Scripts Active Allergies Allergies: Coded Allergies: No Known Drug Allergies (Unverified , 07/27/13) ROS General: No: Chills, Night Sweats, Fatigue, Malaise, Appetite, Other PSYCHOLOGICAL ROS: No: Anxiety, Behavioral Disorder, Concentration difficultie , Decreased libido, Depression, Disorientation, Hallucinations, Hostility, Irritablity, Memory difficulties, Mood Swings, Obsessive thoughts, Physical abuse, Sexual abuse, Sleep disturbances, Suicidal ideation, Other Eyes: No Blurry vision, No Decreased vision, No Double vision, No Dry eyes, No Excessive tearing, No Eye Pain, No Itchy Eyes, No Loss of vision, No Photophobia , No Scotomata, No Uses contacts, No Uses glasses, No Other HEENT: No: Heacaches, Visual Changes, Hearing change, Nasal congestion, Nasal discharge, Oral lesions, Sinus pain, Sore Throat, Epistaxis, Sneezing, Snoring, Tinnitus, Vertigo, Vocal changes, Other ALLERGY AND IMMUNOLOGY: No: Hives, Insect Bite Sensitivity, Itchy/Watery Eyes, Nasal Congestion, Post Nasal Drip, Seasonal Allergies, Other Hematological and Lymphatic: No: Bleeding Problems, Blood Clots, Blood Transfusions, Brusing, Night Sweats, Pallor, Swollen Lymph Nodes, Other ENDOCRINE: No: Breast Changes, Galactorrhea, Hair Pattern Changes, Hot Flashes , Malaise/lethargy, Mood Swings, Palpitations, Polydipsia/polyuria, Skin Changes , Temperature Intolerance, Unexpected Weight Changes, Other Breast: No New/Changing Breast Lumps, No Nipple changes, No Nipple discharge, No Other Respiratory: No: Cough, Hemoptysis, Orthopnea, Pleuritic Pain, Shortness of breath, SOB with excertion, Sputum Changes, Stridor, Tachypnea, Wheezing, Other Cardiovascular: yes Chest Pain; No Palpitations, No Orthopnea, No Paroxysmal Noc. Dyspnea, No Edema, No Lt Headedness, No Other Gastrointestinal: No Nausea, No Vomiting, No Abdominal Pain, No Diarrhea, No Constipation, No Melena, No Hematochezia, No Other Genitourinary: No Dysuria, No Frequency, No Incontinence, No Hematuria, No Retention, No Discharge, No Urgency, No Pain, No Flank Pain, No Other, No , No , No , No , No , No , No Musculoskeletal: No Gait Disturbance, No Joint Pain, No Joint Stiffness, No Joint Swelling, No Muscle Pain, No Muscular Weakness, No Pain In:, No Swelling In:, No Other Neurological: No Behavorial Changes, No Bowel/Bladder ControlChng, No Confusion , No Dizziness, No Gait Disturbance, No Headaches, No Impaired Coord/balance, No Memory Loss, No Numbness/Tingling, No Seizures, No Speech Problems, No Tremors, No Visual Changes, No Weakness, No Other Skin: No Dry Skin, No Eczema, No Hair Changes, No Lumps, No Mole Changes, No Mottling, No Nail Changes, No Pruritus, No Rash, No Skin Lesion Changes, No Other, No Acne Physical Exam General: Alert, Oriented X3, Cooperative, No acute distress HEENT: Atraumatic, PERRLA, EOMI, Mucous membr. moist/pink Lungs: Clear to auscultation, Normal air movement Heart: S1S2, RRR, no gallops, no murmurs Abdomen: Normal bowel sounds, Soft, No tenderness, No hepatosplenomegaly, No masses Extremities: No clubbing, No cyanosis, No edema, Normal pulses, No tenderness/ swelling Skin: No rashes, No breakdown, No significant lesion Neuro: Normal gait, Normal speech, Strength at 5/5 X4 ext, Normal tone, Sensation intact, Cranial nerves 3-12 NL, Reflexes 2+ Psych/Mental Status: Mental status NL, Mood NL Vitals Vitals Vital Signs Date Time Temp Pulse Resp B/P (MAP) Pulse Ox O2 Delivery O2 Flow Rate FiO2 07/03/18 11:47 97.9 78 176/101 (126) Room Air 97.9 07/03/18 09:39 96 07/03/18 09:09 18 Labs Labs Laboratory Tests Test 07/02/18 17:58 07/02/18 18:50 07/02/18 21:20 07/03/18 00:30 White Blood Count 6.6 x10^3/uL (4.0-11.0) Red Blood Count 4.11 x10^6/uL (4.30-5.70) Hemoglobin 11.8 g/dL (13.0-17.5) Hematocrit 36.4 % (39.0-53.0) Mean Corpuscular Volume 89 fL (79-100) Mean Corpuscular Hemoglobin 29 pg (25-35) Mean Corpuscular Hemoglobin Concent 32 g/dL (31-37) Red Cell Distribution Width 13.7 % (11.5-14.5) Platelet Count 338 x10^3/uL (140-400) Neutrophils (%) (Auto) 61 % (31-73) Lymphocytes (%) (Auto) 28 % (24-48) Monocytes (%) (Auto) 10 % (0-9) Eosinophils (%) (Auto) 1 % (0-3) Basophils (%) (Auto) 0 % (0-3) Neutrophils # (Auto) 4.0 x10^3uL (1.8-7.7) Lymphocytes # (Auto) 1.8 x10^3/uL (1.0-4.8) Monocytes # (Auto) 0.6 x10^3/uL (0.0-1.1) Eosinophils # (Auto) 0.1 x10^3/uL (0.0-0.7) Basophils # (Auto) 0.0 x10^3/uL (0.0-0.2) Prothrombin Time 13.0 SEC (11.7-14.0) Prothromb Time International Ratio 1.0 (0.8-1.1) Activated Partial Thromboplast Time 30 SEC (24-38) Sodium Level 140 mmol/L (136-145) Potassium Level 4.0 mmol/L (3.5-5.1) Chloride Level 103 mmol/L (98-107) Carbon Dioxide Level 23 mmol/L (21-32) Anion Gap 14 (6-14) Blood Urea Nitrogen 10 mg/dL (8-26) Creatinine 1.1 mg/dL (0.7-1.3) Estimated GFR (Cockcroft-Gault) 89.3 BUN/Creatinine Ratio 9 (6-20) Glucose Level 89 mg/dL (70-99) Calcium Level 8.6 mg/dL (8.5-10.1) Magnesium Level 2.3 mg/dL (1.8-2.4) Total Bilirubin 0.2 mg/dL (0.2-1.0) Aspartate Amino Transf (AST/SGOT) 20 U/L (15-37) Alanine Aminotransferase (ALT/SGPT) 29 U/L (16-63) Alkaline Phosphatase 65 U/L (46-116) Creatine Kinase 298 U/L (39-308) Creatine Kinase MB (Mass) 2.2 ng/mL (0.0-3.6) Creatine Kinase MB Relative Index 0.7 % (0-4) Troponin I Quantitative < 0.017 ng/mL (0.000-0.055) < 0.017 ng/mL (0.000-0.055) FT-Fyk-Q-Type Natriuretic Peptide 24 pg/mL (0-124) Total Protein 7.3 g/dL (6.4-8.2) Albumin 3.5 g/dL (3.4-5.0) Albumin/Globulin Ratio 0.9 (1.0-1.7) Lipase 113 U/L (73-393) D-Dimer (Ailin) 0.39 ug/mlFEU (0.00-0.50) Test 07/03/18 03:50 Troponin I Quantitative < 0.017 ng/mL (0.000-0.055) Laboratory Tests Test 07/02/18 17:58 07/02/18 18:50 07/02/18 21:20 07/03/18 00:30 White Blood Count 6.6 x10^3/uL (4.0-11.0) Red Blood Count 4.11 x10^6/uL (4.30-5.70) Hemoglobin 11.8 g/dL (13.0-17.5) Hematocrit 36.4 % (39.0-53.0) Mean Corpuscular Volume 89 fL (79-100) Mean Corpuscular Hemoglobin 29 pg (25-35) Mean Corpuscular Hemoglobin Concent 32 g/dL (31-37) Red Cell Distribution Width 13.7 % (11.5-14.5) Platelet Count 338 x10^3/uL (140-400) Neutrophils (%) (Auto) 61 % (31-73) Lymphocytes (%) (Auto) 28 % (24-48) Monocytes (%) (Auto) 10 % (0-9) Eosinophils (%) (Auto) 1 % (0-3) Basophils (%) (Auto) 0 % (0-3) Neutrophils # (Auto) 4.0 x10^3uL (1.8-7.7) Lymphocytes # (Auto) 1.8 x10^3/uL (1.0-4.8) Monocytes # (Auto) 0.6 x10^3/uL (0.0-1.1) Eosinophils # (Auto) 0.1 x10^3/uL (0.0-0.7) Basophils # (Auto) 0.0 x10^3/uL (0.0-0.2) Prothrombin Time 13.0 SEC (11.7-14.0) Prothromb Time International Ratio 1.0 (0.8-1.1) Activated Partial Thromboplast Time 30 SEC (24-38) Sodium Level 140 mmol/L (136-145) Potassium Level 4.0 mmol/L (3.5-5.1) Chloride Level 103 mmol/L (98-107) Carbon Dioxide Level 23 mmol/L (21-32) Anion Gap 14 (6-14) Blood Urea Nitrogen 10 mg/dL (8-26) Creatinine 1.1 mg/dL (0.7-1.3) Estimated GFR (Cockcroft-Gault) 89.3 BUN/Creatinine Ratio 9 (6-20) Glucose Level 89 mg/dL (70-99) Calcium Level 8.6 mg/dL (8.5-10.1) Magnesium Level 2.3 mg/dL (1.8-2.4) Total Bilirubin 0.2 mg/dL (0.2-1.0) Aspartate Amino Transf (AST/SGOT) 20 U/L (15-37) Alanine Aminotransferase (ALT/SGPT) 29 U/L (16-63) Alkaline Phosphatase 65 U/L (46-116) Creatine Kinase 298 U/L (39-308) Creatine Kinase MB (Mass) 2.2 ng/mL (0.0-3.6) Creatine Kinase MB Relative Index 0.7 % (0-4) Troponin I Quantitative < 0.017 ng/mL (0.000-0.055) < 0.017 ng/mL (0.000-0.055) HA-Ayq-Y-Type Natriuretic Peptide 24 pg/mL (0-124) Total Protein 7.3 g/dL (6.4-8.2) Albumin 3.5 g/dL (3.4-5.0) Albumin/Globulin Ratio 0.9 (1.0-1.7) Lipase 113 U/L (73-393) D-Dimer (Ailin) 0.39 ug/mlFEU (0.00-0.50) Test 07/03/18 03:50 Troponin I Quantitative < 0.017 ng/mL (0.000-0.055) Images Images CTPA - Cardiomegaly, no PE VTE Prophylaxis Ordered VTE Prophylaxis Devices: Yes VTE Pharmacological Prophylaxi: No Assessment/Plan Assessment/Plan A/P: Chest pain - non-cardiac, this is costochondritis, topical voltaren gel, can d/ c with this. Get stress testing a bit earlier Likely ALEE - needs further evaluation Likely ETOH abuse FEN - Cardiac diet PPX - SCDs FULL CODE Admitted for chest pain, can d/c Greater than 105 minutes on same day admit and discharge SHAYAN PICKARD MD Jul 03, 2018 12:59
--- NOTE | 2018-07-03 13:57 | PDOC3 ---
Discharge Summary Visit Information Date of Admission: Jul 02, 2018 Date of Discharge: Jul 03, 2018 Admitting Diagnosis: Chest pain Final Diagnosis Costochondritis Brief Hospital Course Allergies Allergies Coded Allergies Type Severity Reaction Last Updated Verified No Known Drug Allergies 07/27/13 No Vital Signs Vital Signs Date Time Temp Pulse Resp B/P (MAP) Pulse Ox O2 Delivery O2 Flow Rate FiO2 07/03/18 11:47 97.9 78 176/101 (126) Room Air 97.9 07/03/18 09:39 96 07/03/18 09:09 18 Lab Results Laboratory Tests Test 07/02/18 17:58 07/02/18 18:50 07/02/18 21:20 07/03/18 00:30 White Blood Count 6.6 x10^3/uL (4.0-11.0) Red Blood Count 4.11 x10^6/uL (4.30-5.70) Hemoglobin 11.8 g/dL (13.0-17.5) Hematocrit 36.4 % (39.0-53.0) Mean Corpuscular Volume 89 fL (79-100) Mean Corpuscular Hemoglobin 29 pg (25-35) Mean Corpuscular Hemoglobin Concent 32 g/dL (31-37) Red Cell Distribution Width 13.7 % (11.5-14.5) Platelet Count 338 x10^3/uL (140-400) Neutrophils (%) (Auto) 61 % (31-73) Lymphocytes (%) (Auto) 28 % (24-48) Monocytes (%) (Auto) 10 % (0-9) Eosinophils (%) (Auto) 1 % (0-3) Basophils (%) (Auto) 0 % (0-3) Neutrophils # (Auto) 4.0 x10^3uL (1.8-7.7) Lymphocytes # (Auto) 1.8 x10^3/uL (1.0-4.8) Monocytes # (Auto) 0.6 x10^3/uL (0.0-1.1) Eosinophils # (Auto) 0.1 x10^3/uL (0.0-0.7) Basophils # (Auto) 0.0 x10^3/uL (0.0-0.2) Prothrombin Time 13.0 SEC (11.7-14.0) Prothromb Time International Ratio 1.0 (0.8-1.1) Activated Partial Thromboplast Time 30 SEC (24-38) Sodium Level 140 mmol/L (136-145) Potassium Level 4.0 mmol/L (3.5-5.1) Chloride Level 103 mmol/L (98-107) Carbon Dioxide Level 23 mmol/L (21-32) Anion Gap 14 (6-14) Blood Urea Nitrogen 10 mg/dL (8-26) Creatinine 1.1 mg/dL (0.7-1.3) Estimated GFR (Cockcroft-Gault) 89.3 BUN/Creatinine Ratio 9 (6-20) Glucose Level 89 mg/dL (70-99) Calcium Level 8.6 mg/dL (8.5-10.1) Magnesium Level 2.3 mg/dL (1.8-2.4) Total Bilirubin 0.2 mg/dL (0.2-1.0) Aspartate Amino Transf (AST/SGOT) 20 U/L (15-37) Alanine Aminotransferase (ALT/SGPT) 29 U/L (16-63) Alkaline Phosphatase 65 U/L (46-116) Creatine Kinase 298 U/L (39-308) Creatine Kinase MB (Mass) 2.2 ng/mL (0.0-3.6) Creatine Kinase MB Relative Index 0.7 % (0-4) Troponin I Quantitative < 0.017 ng/mL (0.000-0.055) < 0.017 ng/mL (0.000-0.055) HV-Cvt-H-Type Natriuretic Peptide 24 pg/mL (0-124) Total Protein 7.3 g/dL (6.4-8.2) Albumin 3.5 g/dL (3.4-5.0) Albumin/Globulin Ratio 0.9 (1.0-1.7) Lipase 113 U/L (73-393) D-Dimer (Ailin) 0.39 ug/mlFEU (0.00-0.50) Test 07/03/18 03:50 Troponin I Quantitative < 0.017 ng/mL (0.000-0.055) Laboratory Tests Test 07/02/18 17:58 07/02/18 18:50 07/02/18 21:20 07/03/18 00:30 White Blood Count 6.6 x10^3/uL (4.0-11.0) Red Blood Count 4.11 x10^6/uL (4.30-5.70) Hemoglobin 11.8 g/dL (13.0-17.5) Hematocrit 36.4 % (39.0-53.0) Mean Corpuscular Volume 89 fL (79-100) Mean Corpuscular Hemoglobin 29 pg (25-35) Mean Corpuscular Hemoglobin Concent 32 g/dL (31-37) Red Cell Distribution Width 13.7 % (11.5-14.5) Platelet Count 338 x10^3/uL (140-400) Neutrophils (%) (Auto) 61 % (31-73) Lymphocytes (%) (Auto) 28 % (24-48) Monocytes (%) (Auto) 10 % (0-9) Eosinophils (%) (Auto) 1 % (0-3) Basophils (%) (Auto) 0 % (0-3) Neutrophils # (Auto) 4.0 x10^3uL (1.8-7.7) Lymphocytes # (Auto) 1.8 x10^3/uL (1.0-4.8) Monocytes # (Auto) 0.6 x10^3/uL (0.0-1.1) Eosinophils # (Auto) 0.1 x10^3/uL (0.0-0.7) Basophils # (Auto) 0.0 x10^3/uL (0.0-0.2) Prothrombin Time 13.0 SEC (11.7-14.0) Prothromb Time International Ratio 1.0 (0.8-1.1) Activated Partial Thromboplast Time 30 SEC (24-38) Sodium Level 140 mmol/L (136-145) Potassium Level 4.0 mmol/L (3.5-5.1) Chloride Level 103 mmol/L (98-107) Carbon Dioxide Level 23 mmol/L (21-32) Anion Gap 14 (6-14) Blood Urea Nitrogen 10 mg/dL (8-26) Creatinine 1.1 mg/dL (0.7-1.3) Estimated GFR (Cockcroft-Gault) 89.3 BUN/Creatinine Ratio 9 (6-20) Glucose Level 89 mg/dL (70-99) Calcium Level 8.6 mg/dL (8.5-10.1) Magnesium Level 2.3 mg/dL (1.8-2.4) Total Bilirubin 0.2 mg/dL (0.2-1.0) Aspartate Amino Transf (AST/SGOT) 20 U/L (15-37) Alanine Aminotransferase (ALT/SGPT) 29 U/L (16-63) Alkaline Phosphatase 65 U/L (46-116) Creatine Kinase 298 U/L (39-308) Creatine Kinase MB (Mass) 2.2 ng/mL (0.0-3.6) Creatine Kinase MB Relative Index 0.7 % (0-4) Troponin I Quantitative < 0.017 ng/mL (0.000-0.055) < 0.017 ng/mL (0.000-0.055) AY-Arv-Z-Type Natriuretic Peptide 24 pg/mL (0-124) Total Protein 7.3 g/dL (6.4-8.2) Albumin 3.5 g/dL (3.4-5.0) Albumin/Globulin Ratio 0.9 (1.0-1.7) Lipase 113 U/L (73-393) D-Dimer (Ailin) 0.39 ug/mlFEU (0.00-0.50) Test 07/03/18 03:50 Troponin I Quantitative < 0.017 ng/mL (0.000-0.055) Brief Hospital Course Patient is a 43 yo male who presents with shortness of breath. He states that in the evening around 4:00 when he was beginning to work he had an episode of shortness of breath and chest pain while exerting himself. He described the chest pain as a stabbing/pressure sensation located in the center of his chest with no radiation after lifting some heavy boxes at work. It is reproducible to palpation. He is currently not experiencing chest pain until touched, but when he was having the chest pain he rated as a 6 out of 10. During this episode he also experienced some sweatiness and patient states he was "feeling off". Patient also had a similar episode one month ago where he was admitted and received a echo. Patient was told to get an outpatient stress test which she has scheduled for the end of July. Fentanyl completed relieved his pain. He admits to drinking 4-5 beers daily. He had negative troponins, negative EKG, and CTPA that showed cardiomegaly and no PE. Seen by cardiology, ok for discharge with topical voltaren for costochondritis Greater than 105 minutes spent on same day admit and discharge Discharge Information Condition at Discharge: Improved Follow Up: Weeks Disposition/Orders: D/C to Home No Active Prescriptions or Reported Meds SHAYAN PICKARD MD Jul 03, 2018 13:57
[2018-07-03] MEDS ORDERED: DICLOFENAC SODIUM 1% TOPICAL GEL 100GM TUBE. TP SCH (14:00)
--- NOTE | 2018-07-03 14:23 | NUR ---
Pt discharged to home, no new scripts at this time. Pt to follow up out pt with Dr. Robb, information given to pt. IV d/c'd , pt alert and oriented. Staff assist to car with family.
--- NOTE | 2018-07-03 14:57 | EKG ---
[facility] [address] [place] [address] Test Date: 2018-07-02 Test Time: 17:41:02 Pat Name: HUMBERTO WANG Department: Room: 208 1 Gender: M Med Asst: : 1975 Requested By: LEONARD BONE Order Number: [id number] Reading MD: Beny Robb MD Measurements Intervals [place] Rate: 97 P: 30 AR: 152 QRS: 20 QRSD: 82 T: 25 QT: 340 QTc: 436 Interpretive Statements SINUS RHYTHM Electronically Signed On 07-06-2018 12:14:39 CDT by Beny Robb MD
== END 2018-07-03 15:36 | disposition home or self-care (01) | DRG 206 ==
LOC: ER 17:28 → 2 NORTH 21:15
PROVIDERS: ADMIT Family Medicine; ATTEND Family Medicine
DX: M94.0 Chondrocostal junction syndrome [Tietze] (principal); G47.33 Obstructive sleep apnea (adult) (pediatric); I51.7 Cardiomegaly; F12.90 Cannabis use, unspecified, uncomplicated; K21.9 Gastro-esophageal reflux disease without esophagitis; F10.20 Alcohol dependence, uncomplicated; X50.0XXA Overexertion from strenuous movement or load, initial encounter; Z82.49 Family history of ischemic heart disease and other diseases of the circulatory system; Z79.899 Other long term (current) drug therapy
CPT/HCPCS: 36415; 71275; 80053; 82553; 83690; 83735; 83880; 84484; 85025; 85379; 85610; 85730; 93005; J3010; J7030; Q9967; 99285-25

== ENCOUNTER 2019-08-01 13:54 | Emergency (ER) | payer SELFPAY ==
[~2019-08-01] VITALS: Ht 182.9 cm; Wt 170.5 kg
[2019-08-01 13:59] VITALS: BP 166/110
[2019-08-01] MEDS ORDERED: DICL50TA2 PO (14:31)
[2019-08-01] MEDS ORDERED: CYCL10TA2 PO (14:31)
--- NOTE | 2019-08-01 14:31 | PHYS DOC ---
Past Medical History Past Medical History: Alcoholism, GERD Past Surgical History: No Surgical History Smoking Status: Former Smoker Alcohol Use: Heavy Drug Use: Marijuana General Adult EDM: Chief Complaint: LOWER BACK PAIN OR INJURY HPI: HPI: Patient is a 44 year old male who presents to the ED today complaining of 8 out of 10 sharp intermittent bilateral low back pain nonradiating in nature that began 5 days ago. Patient states he slipped on some gravel but did not fall, this triggered his pain. Patient denies any pain radiating to bilateral lower extremities. Denies any loss of bowel bladder function. States most of the pain is on certain movements. Denies anything specifically relieving the pain. He states he would like a note to be off work. Review of Systems: Review of Systems: Constitutional: Denies fever or chills. [] GI: Denies abdominal pain, nausea, vomiting, bloody stools or diarrhea. [] : Denies dysuria. [] Musculoskeletal: Reports low back pain Integument: Denies rash. [] Neurologic: Denies headache, focal weakness or sensory changes. [] Psychiatric: Denies depression or anxiety. [] Heart Score: Risk Factors: Risk Factors: DM, Current or recent (<one month) smoker, HTN, HLP, family history of CAD, obesity. Risk Scores: Score 0 - 3: 2.5% MACE over next 6 weeks - Discharge Home Score 4 - 6: 20.3% MACE over next 6 weeks - Admit for Clinical Observation Score 7 - 10: 72.7% MACE over next 6 weeks - Early Invasive Strategies Allergies: Allergies: Allergies Coded Allergies Type Severity Reaction Last Updated Verified No Known Drug Allergies 07/27/13 No Physical Exam: PE: Constitutional: Well developed, well nourished, no acute distress, non-toxic appearance. [] Abdomen: Bowel sounds normal, soft, no tenderness, no masses, no pulsatile masses. [] Skin: Warm, dry, no erythema, no rash. [] Back: Morbidly obese patient. No tenderness, no CVA tenderness. [] Extremities: No tenderness, no cyanosis, no clubbing, ROM intact, no edema. [] Neurologic: Alert and oriented X 3, normal motor function, normal sensory function, no focal deficits noted. [] Psychologic: Affect normal, judgement normal, mood normal. [] Current Patient Data: Vital Signs: Vital Signs Date Time Temp Pulse Resp B/P (MAP) Pulse Ox O2 Delivery O2 Flow Rate FiO2 08/01/19 13:59 98.8 82 20 166/110 (128) 98 Room Air 98.8 EKG: EKG: [] Radiology/Procedures: Radiology/Procedures: [] Course & Med Decision Making: Course & Med Decision Making Pertinent Labs and Imaging studies reviewed. (See chart for details) This is a 44-year-old male patient who presents to the ED today complaining of low back pain that began after he slipped but did not fall 5 days ago. Patient has no cauda equina syndrome symptoms. Supportive care measures recommended. He requested a note for work which was provided. His blood pressure was in the 160s over 100s, has been here in the ED before with high blood pressure. Spoke to patient about the importance of following up with this. [place] Disclaimer: Vesta Disclaimer: This electronic medical record was generated, in whole or in part, using a voice recognition dictation system. Departure Departure Impression: Primary Impression: Low back pain Qualified Codes: M54.5 - Low back pain Additional Impression: BP (high blood pressure) Qualified Codes: I10 - Essential (primary) hypertension Disposition: HOME, SELF-CARE Condition: STABLE Referrals: NO PCP (PCP) Follow-up with your primary care doctor in 1 to 2 weeks Patient Instructions: Back Pain, Adult Additional Instructions: You were evaluated in the emergency room for back pain. Take the prescribed medications as ordered. Blood pressures running high. Start following up with a primary care doctor for blood pressure monitoring. Consider weight loss, diet and exercise which will help your blood pressure and back pain. Scripts Diclofenac Potassium (DICLOFENAC POTASSIUM) 50 Mg Tablet 1 TAB PO BID, #30 TAB 0 Refills Prov: ANDRIY DE LEON APRN 08/01/19 Cyclobenzaprine Hcl (CYCLOBENZAPRINE HCL) 10 Mg Tablet 1 TAB PO TID, #30 TAB Prov: ANDRIY DE LEON APRN 08/01/19 ANDRIY DE LEON APRN August 01, 2019 14:31
== END 2019-08-01 14:54 | disposition home or self-care (01) ==
LOC: ER 13:54
DX: M54.5 Low back pain (principal); I10 Essential (primary) hypertension; K21.9 Gastro-esophageal reflux disease without esophagitis; F12.90 Cannabis use, unspecified, uncomplicated; F10.20 Alcohol dependence, uncomplicated; Z87.891 Personal history of nicotine dependence
CPT/HCPCS: 99283